=== PATIENT | female | born 1960 | race Caucasian/White ===

== ENCOUNTER 2024-06-01 07:24 | Emergency (ER) | payer OTHER ==
--- NOTE | 2024-06-01 07:45 | ERPHSYRPT ---
- History of Present Illness Time Seen by Provider: 06/01/24 07:45 Source: patient, family Exam Limitations: no limitations Physician History: This is a 63-year-old white female patient who arrives by private vehicle accompanied by her spouse. Patient's complaint is headache, vomiting, diarrhea and bodyaches since yesterday. She denies chest pain. She denies shortness of breath. The headache is described as a throbbing constant ache. Patient has a history of diabetes, hypothyroidism, hypertension, hyperlipidemia, gastroesophageal reflux disease and COPD. Timing/Duration: yesterday Cough Quality/Degree: no cough Possible Cause: no prior episodes Associated Symptoms: headache, muscle aches, No chest pain/soreness, No cough, No shortness of breath Allergies/Adverse Reactions: sumatriptan [From Imitrex] Allergy (Mild, Verified 02/07/13 10:41) sumatriptan succinate [From Imitrex] Allergy (Mild, Verified 02/07/13 10:41) acetaminophen [From Vicodin] Allergy (Unverified 02/07/13 10:36) amitriptyline [Amitriptyline] Allergy (Unverified 02/07/13 10:36) aripiprazole [From Abilify] Allergy (Verified 02/07/13 10:36) duloxetine HCl [From Cymbalta] Allergy (Unverified 02/07/13 10:36) erythromycin base [Erythromycin Base] Allergy (Unverified 02/07/13 10:36) escitalopram oxalate [From Lexapro] Allergy (Unverified 02/07/13 10:36) hydrocodone bitartrate [From Vicodin] Allergy (Unverified 02/07/13 10:36) ketorolac tromethamine [From Toradol] Allergy (Unverified 02/07/13 10:36) quetiapine fumarate [From Seroquel] Adverse Reaction (Unverified 02/07/13 10:36) Home Medications: Albuterol 8 gm Mdi Hfa [Ventolin Hfa MDI] 2 puff Q6HPRN PRN 06/01/24 [History] Atorvastatin Calcium 10 mg PO DAILY 06/01/24 [History] Glipizide 10 mg [Glucotrol 10 MG] 10 mg PO DAILY 06/01/24 [History] Levothyroxine Sodium 112 Mcg [Synthroid 112 Mcg] 112 mcg PO DAILY 06/01/24 [History] Lisinopril 10 mg [Zestril 10 MG] 10 mg PO DAILY 06/01/24 [History] Montelukast Sodium 10 mg [Singulair 10 MG] 1 tab PO DAILY 06/01/24 [History] PANTOPRAZOLE 40 mg Tablet [Protonix 40MG Tablet] 1 mg PO DAILY 06/01/24 [History] Hx Tetanus, Diphtheria Vaccination/Date Given: Yes Hx Influenza Vaccination/Date Given: Yes (2011) Hx Pneumococcal Vaccination/Date Given: No Travel Risk - International Travel Have you traveled outside of the country in past 3 weeks: No - Emerging Infectious Disease Symptoms: Diarrhea, Headaches/Body Aches/, Vomitting - Review of Systems Constitutional: Fever Eyes: No Symptoms Ears, Nose, & Throat: No Symptoms Respiratory: No Symptoms Abdominal/Gastrointestinal: Nausea, Vomiting, Diarrhea, Appetite Changes Genitourinary Symptoms: No Symptoms Musculoskeletal: Arthralgias, Myalgias Neurological: Headache Psychological: No Symptoms Endocrine: No Symptoms Hematologic/Lymphatic: No Symptoms Immunological/Allergic: No Symptoms All Other Systems: Reviewed and Negative - Past Medical History Pertinent Past Medical History: Yes Neurological History: Migraines Cardiac History: Hypertension Endocrine Medical History: Diabetes Type II, Hypothyroidism Musculoskeletal History: No Pertinent History GI Medical History: GERD History: No Pertinent History Psycho-Social History: Anxiety, Depression Female Reproductive Disorders: No Pertinent History - Past Surgical History Past Surgical History: Yes Gastrointestinal: Cholecystectomy Musculoskeletal: Orthopedic Surgery Female Surgical History: Section, Tubal Ligation Significant Family History: heart disease, diabetes, hypertension - Social History Smoking Status: Never smoker Exposure to second hand smoke: Yes Alcohol Use: None Drug Use: none Patient Lives Alone: No - Nursing Vital Signs Nursing Vital Signs: Initial Vital Signs Temperature 99.9 F 06/01/24 07:24 Pulse Rate 66 06/01/24 07:24 Respiratory Rate 18 06/01/24 07:24 Blood Pressure 180/63 06/01/24 07:24 O2 Sat by Pulse Oximetry 99 06/01/24 07:24 Pain Scale Pain Intensity 6 - Physical Exam General Appearance: mild distress, alert, anxiety Eye Exam: PERRL/EOMI, eyes nml inspection Ears, Nose, Throat Exam: normal ENT inspection, moist mucous membranes Neck Exam: normal inspection, non-tender, supple, full range of motion Respiratory Exam: normal breath sounds, lungs clear, airway intact, No chest tenderness, No respiratory distress Cardiovascular Exam: regular rate/rhythm, normal heart sounds, normal peripheral pulses Gastrointestinal/Abdomen Exam: soft, normal bowel sounds, No tenderness, No guarding Pelvic Exam: not done Rectal Exam: not done Back Exam: normal inspection, normal range of motion, No CVA tenderness, No vertebral tenderness Extremity Exam: normal inspection, normal range of motion, pelvis stable Neurologic Exam: alert, oriented x 3, cooperative, rod buster helper II-XII nml as tested, nml cerebellar function, nml station & gait, sensation nml Skin Exam: normal color, warm, dry Lymphatic Exam: No adenopathy SpO2 Interpretation: normal O2 Delivery: Room Air - Course Nursing assessment & vital signs reviewed: Yes Ordered Tests: Active Orders 24 hr Category Date Time Status IV Insertion STAT Care 06/01/24 07:45 Active Pulse Oximetry (ED) STAT Care 06/01/24 07:45 Active HEAD WITHOUT CONTRAST [CT] Stat Exams 06/01/24 10:04 Completed BLOOD CULTURE Stat Lab 06/01/24 07:45 Received CBC W DIFF Stat Lab 06/01/24 08:08 Completed CMP Stat Lab 06/01/24 08:08 Completed CULTURE,URINE Stat Lab 06/01/24 11:46 Received MONO SCREEN Stat Lab 06/01/24 08:08 Completed UA W/RFX UR CULTURE Stat Lab 06/01/24 11:46 Completed Medication Summary Discontinued Medications Generic Name Dose Route Start Last Admin Trade Name Nashq PRN Reason Stop Dose Admin Diphenhydramine HCl 25 mg 06/01/24 09:59 06/01/24 10:05 Diphenhydramine Hcl 50 Mg/Ml Vial IV 06/01/24 10:00 25 mg STAT ONE Administration Diphenhydramine HCl Confirm 06/01/24 10:02 Diphenhydramine Hcl 50 Mg/Ml Vial Administered 06/01/24 10:03 Dose 50 mg .ROUTE .STK-MED ONE Enalaprilat 1.25 mg 06/01/24 10:00 06/01/24 10:06 Enalaprilat 2.5 Mg Injection IV 06/01/24 10:01 1.25 mg STAT ONE Administration Enalaprilat Confirm 06/01/24 10:02 Enalaprilat 2.5 Mg Injection Administered 06/01/24 10:03 Dose 2.5 mg IV .STK-MED ONE Enalaprilat 0.625 mg 06/01/24 11:27 Enalaprilat 2.5 Mg Injection IV 06/01/24 11:28 STAT ONE Hydromorphone HCl 1 mg 06/01/24 07:56 06/01/24 08:05 Hydromorphone 1 Mg/1ml Inj IV 06/01/24 07:57 1 mg STAT ONE Administration Hydromorphone HCl Confirm 06/01/24 08:03 Hydromorphone 1 Mg/1ml Inj Administered 06/01/24 08:04 Dose 1 mg .ROUTE .STK-MED ONE Hydromorphone HCl 0.5 mg 06/01/24 09:46 06/01/24 09:51 Hydromorphone 1 Mg/1ml Inj IV 06/01/24 09:47 0.5 mg STAT ONE Administration Hydromorphone HCl Confirm 06/01/24 09:49 Hydromorphone 1 Mg/1ml Inj Administered 06/01/24 09:50 Dose 1 mg .ROUTE .STK-MED ONE Sodium Chloride 1,000 mls @ 999 mls/hr 06/01/24 07:45 06/01/24 09:01 Sodium Chloride 0.9% 1000 Ml IV 06/01/24 08:45 Infused .Q1H1M STA Infusion Sodium Chloride Confirm 06/01/24 07:50 Sodium Chloride 0.9% 1000 Ml Administered 06/01/24 07:51 Dose 1,000 mls @ ud .ROUTE .STK-MED ONE Lactated Ringer's 1,000 mls @ 999 mls/hr 06/01/24 08:55 06/01/24 10:07 Lactated Ringers IV 06/01/24 09:55 Infused .Q1H1M ONE Infusion Lactated Ringer's Confirm 06/01/24 09:03 Lactated Ringers Administered 06/01/24 09:04 Dose 1,000 mls @ ud IV .STK-MED ONE Ondansetron HCl 4 mg 06/01/24 07:45 06/01/24 07:51 Ondansetron Hcl 4 Mg/2 Ml Vial IV 06/01/24 07:46 4 mg STAT STA Administration Ondansetron HCl Confirm 06/01/24 07:50 Ondansetron Hcl 4 Mg/2 Ml Vial Administered 06/01/24 07:51 Dose 4 mg .ROUTE .STK-MED ONE Oseltamivir Phosphate 75 mg 06/01/24 09:02 06/01/24 09:06 Oseltamivir 75 Mg Cap PO 06/01/24 09:03 75 mg STAT ONE Administration Oseltamivir Phosphate Confirm 06/01/24 09:05 Oseltamivir 75 Mg Cap Administered 06/01/24 09:06 Dose 75 mg PO .STK-MED ONE Prochlorperazine Edisylate 5 mg 06/01/24 09:59 06/01/24 10:03 Prochlorperazine Edisylate 10 Mg/2 Ml Vial IV 06/01/24 10:00 5 mg STAT ONE Administration Prochlorperazine Edisylate Confirm 06/01/24 10:02 Prochlorperazine Edisylate 10 Mg/2 Ml Vial Administered 06/01/24 10:03 Dose 10 mg .ROUTE .STK-MED ONE Lab/Rad Data: Laboratory Result Diagrams 06/01/24 08:08 06/01/24 08:08 Laboratory Results 06/01/24 06/01/24 06/01/24 Range/Units 11:46 08:08 08:08 WBC (3.98-10.04) x10^3/uL RBC (3.93-5.22) x10^6/uL Hgb (11.2-15.7) g/dL Hct (34.1-44.9) % MCV (79.4-94.8) fL MCH (25.6-32.2) pg MCHC (32.2-35.5) g/dL RDW (11.7-14.4) % Plt Count (182-369) x10^3/uL MPV (9.4-12.3) fL Gran % (34.0-71.1) % Immature Gran % (Auto) (0.001-0.429) % Nucleat RBC Rel Count (0.00-0.2) % Eos # (Auto) (0.04-0.36) x10^3/uL Immature Gran # (Auto) (0.001-0.031) x10^3u/L Absolute Lymphs (auto) (1.18-3.74) x10^3/uL Absolute Monos (auto) (0.24-0.86) x10^3/uL Absolute Nucleated RBC (0.00-0.012) x10^3u/L Lymphocytes % (19.3-51.7) % Monocytes % (4.7-12.5) % Eosinophils % (0.7-5.8) % Basophils % (0.1-1.2) % Absolute Granulocytes (1.56-6.13) x10^3/uL Basophils # (0.01-0.08) x10^3/uL Sodium (135-145) mmol/L Potassium (3.5-5.1) mmol/L Chloride (98-107) mmol/L Carbon Dioxide (22-30) mmol/L Anion Gap (5-15) MEQ/L BUN (7-17) mg/dL Creatinine (0.52-1.04) mg/dL Estimated GFR ML/MIN Glucose (74-106) mg/dL Calcium (8.4-10.2) mg/dL Total Bilirubin (0.2-1.3) mg/dL AST (14-36) U/L ALT (0-35) U/L Alkaline Phosphatase (38-126) U/L Serum Total Protein (6.3-8.2) g/dL Albumin (3.5-5.0) g/dL Urine Color Yellow (Yellow) Urine Appearance Clear (Clear) Urine pH 6.5 (4.6-8.0) Ur Specific Badger 1.015 (1.005-1.030) Urine Protein Trace A (Negative) Urine Glucose (UA) >=1000 A (Negative) mg/dL Urine Ketones 15 A (Negative) Urine Blood Small A (Negative) Urine Nitrite Negative (Negative) Urine Bilirubin Negative (Negative) Urine Urobilinogen 0.2 (0.2) mg/dL Ur Leukocyte Esterase Negative (Negative) U Hyaline Cast (Auto) NONE SEEN (0-2) /LPF Urine Microscopic RBC 6-10 A (0-5) /HPF Urine Microscopic WBC 0-2 (0-5) /HPF Ur Epithelial Cells None Seen (None Seen) /HPF Urine Bacteria None Seen (None Seen) /HPF Urine Culture Reflexed YES (NO) Monoscreen NEGATIVE (NEGATIVE) Influenza Type A Ag POSITIVE A (NEGATIVE) Influenza Type B Ag NEGATIVE (NEGATIVE) RSV (PCR) NEGATIVE (NEGATIVE) SARS-CoV-2 (PCR) NEGATIVE (NEGATIVE) Group A Strep Antibody (NEGATIVE) Slides for Path Review 06/01/24 06/01/24 06/01/24 Range/Units 08:08 08:08 08:08 WBC 7.2 (3.98-10.04) x10^3/uL RBC 4.76 (3.93-5.22) x10^6/uL Hgb 13.4 (11.2-15.7) g/dL Hct 38.1 (34.1-44.9) % MCV 80.0 (79.4-94.8) fL MCH 28.2 (25.6-32.2) pg MCHC 35.2 (32.2-35.5) g/dL RDW 12.0 (11.7-14.4) % Plt Count 216 (182-369) x10^3/uL MPV 11.4 (9.4-12.3) fL Gran % 87.8 H (34.0-71.1) % Immature Gran % (Auto) 0.3 (0.001-0.429) % Nucleat RBC Rel Count 0.0 (0.00-0.2) % Eos # (Auto) 0.11 (0.04-0.36) x10^3/uL Immature Gran # (Auto) 0.02 (0.001-0.031) x10^3u/L Absolute Lymphs (auto) 0.29 L (1.18-3.74) x10^3/uL Absolute Monos (auto) 0.44 (0.24-0.86) x10^3/uL Absolute Nucleated RBC 0.00 (0.00-0.012) x10^3u/L Lymphocytes % 4.1 L (19.3-51.7) % Monocytes % 6.2 (4.7-12.5) % Eosinophils % 1.5 (0.7-5.8) % Basophils % 0.1 (0.1-1.2) % Absolute Granulocytes 6.28 H (1.56-6.13) x10^3/uL Basophils # 0.01 (0.01-0.08) x10^3/uL Sodium 131 L (135-145) mmol/L Potassium 3.7 (3.5-5.1) mmol/L Chloride 95 L (98-107) mmol/L Carbon Dioxide 19 L (22-30) mmol/L Anion Gap 21.0 H (5-15) MEQ/L BUN 16 (7-17) mg/dL Creatinine 0.73 (0.52-1.04) mg/dL Estimated GFR 91.8 ML/MIN Glucose 304 H (74-106) mg/dL Calcium 9.7 (8.4-10.2) mg/dL Total Bilirubin 1.00 (0.2-1.3) mg/dL AST 38 H (14-36) U/L ALT 23 (0-35) U/L Alkaline Phosphatase 129 H (38-126) U/L Serum Total Protein 8.6 H (6.3-8.2) g/dL Albumin 5.2 H (3.5-5.0) g/dL Urine Color (Yellow) Urine Appearance (Clear) Urine pH (4.6-8.0) Ur Specific Badger (1.005-1.030) Urine Protein (Negative) Urine Glucose (UA) (Negative) mg/dL Urine Ketones (Negative) Urine Blood (Negative) Urine Nitrite (Negative) Urine Bilirubin (Negative) Urine Urobilinogen (0.2) mg/dL Ur Leukocyte Esterase (Negative) U Hyaline Cast (Auto) (0-2) /LPF Urine Microscopic RBC (0-5) /HPF Urine Microscopic WBC (0-5) /HPF Ur Epithelial Cells (None Seen) /HPF Urine Bacteria (None Seen) /HPF Urine Culture Reflexed (NO) Monoscreen (NEGATIVE) Influenza Type A Ag (NEGATIVE) Influenza Type B Ag (NEGATIVE) RSV (PCR) (NEGATIVE) SARS-CoV-2 (PCR) (NEGATIVE) Group A Strep Antibody NOT DETECTED (NEGATIVE) Slides for Path Review YES - Progress Progress: improved, re-examined Air Movement: good Progress Note: 06/01/24 08:06 My medical decision making and the assignment of moderate complexity to this patient's medical issue today is based on review of the patient's past medical history, review the patient's medication list, reviewed patient drug allergy list, history present illness and physical findings on examination. The workup in this patient includes placement of a intravenous line, infusion of Zofran intravenously, infusion of crystalloid solution, infusion of Dilaudid intr avenously, CBC, CMP, amylase, lipase, urinalysis, viral swabs, monotest, group A strep test. Differential diagnosis includes but is not limited to dehydration, urinary tract infection, viral illness, mononucleosis, electrolyte abnormalities 06/01/24 09:58 Patient is having a headache. She did not take her blood pressure medications today. I interpreted the patient's laboratory data results. Based on the laboratory data results, the patient has influenza A infection. 06/01/24 11:29 The patient has still not provided us a urine specimen. We will discussed with patient about straight catheterization. The CT scan of the head without contrast was interpreted by the radiologist and I reviewed the impression. 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 There is no evidence of urinary tract inf ection. There is mild dehydration present. Blood Culture(s) Obtained: Yes Antibiotics given: No Counseled pt/family regarding: lab results, diagnosis, need for follow-up Medical Desision Making - Independent Historian Additional History obtained from: Spouse - Diagnostic Testing Diagnostic test were ordered, analyzed, and reviewed by me: Yes Radiological Interpretation: Reviewed by me, Teleradiologist Report - Risk of complications The pt has a mod risk of morbidity or mortality based on: Need for prescription drug management - Departure Departure Disposition: Home Clinical Impression: Viral illness, Influenza A H1N1 infection, Hypertension Condition: Stable Critical Care Time: No Referrals: CORNELIO MICHELLE [ACTIVE STAFF] - Follow up/PCP as directed Additional Instructions: Drink plenty of clear liquids before advancing your diet. Take your Tamiflu and other medications as prescribed. Call your primary care provider today, to make arranges for follow-up appointment to be seen in the next 3 to 5 days. Prescriptions: Ondansetron ODT 4 MG [Zofran Odt 4 mg] 4 mg PO Q6H PRN PRN #10 tablet PRN Reason: Vomiting Oseltamivir 75 mg [Tamiflu 75MG Capsule] 75 mg PO BID #10 cap
[2024-06-01] MEDS ORDERED: Zofran 4 MG/2 ML VIAL ONE (07:50)
[2024-06-01] MEDS ORDERED: Sodium Chloride 0.9% 1000 ML 1,000 ML ONE (07:50)
[2024-06-01] MEDS: Sodium Chloride 0.9% 1000 ML 1,000 ML IV STA (07:51)
[2024-06-01] MEDS: Zofran 4 MG/2 ML VIAL IV STA (07:51)
[2024-06-01 07:55] VITALS: TEMP 99.9
[2024-06-01] MEDS ORDERED: Hydromorphone 1 mg/ml Injection ONE ×2 (08:03→09:49)
[2024-06-01] MEDS: Hydromorphone 1 mg/ml Injection IV ONE ×2 (08:05→09:51)
[2024-06-01 08:15] LABS: Absolute Neutrophil Ct (ANC) 6.28 x10^3/uL (1.56-6.13); BASOPHIL % 0.1 % (0.1-1.2); Basophil (Absolute #) 0.01 x10^3/uL (0.01-0.08); Eosinophil % 1.5 % (0.7-5.8); Eosinophil (Absolute #) 0.11 x10^3/uL (0.04-0.36); Hematocrit 38.1 % (34.1-44.9); Hemoglobin 13.4 g/dL (11.2-15.7); IMMATURE GRAN # 0.02 x10^3u/L (0.001-0.031); IMMATURE GRAN % 0.3 % (0.001-0.429); Lymphocyte (Absolute #) 0.29 x10^3/uL (1.18-3.74); Lymphocytes % 4.1 % (19.3-51.7); Mean Corpuscular Hemoglobin 28.2 pg (25.6-32.2); Mean Corpuscular Hgb Concent. 35.2 g/dL (32.2-35.5); Mean Platelet Volume 11.4 fL (9.4-12.3); Monocyte (Absolute #) 0.44 x10^3/uL (0.24-0.86); Monocytes % 6.2 % (4.7-12.5); Neutrophil % 87.8 % (34.0-71.1); Platelet Count 216 x10^3/uL (182-369); Red Blood Count 4.76 x10^6/uL (3.93-5.22); White Blood Count 7.2 x10^3/uL (3.98-10.04)
[2024-06-01 08:30] LABS: ALBUMIN 5.2 g/dL (3.5-5.0); Calcium 9.7 mg/dL (8.4-10.2); Creatinine 1 0.73 mg/dL (0.52-1.04); EST GLOMERULAR FILTRATION RATE 91.8 ML/MIN; Potassium 3.7 mmol/L (3.5-5.1); Total Protein 8.6 g/dL (6.3-8.2)
[2024-06-01 08:47] LABS: Slide Review 1 YES
[2024-06-01 08:57] LABS: INFLUENZA A POSITIVE (NEGATIVE); INFLUENZA B NEGATIVE (NEGATIVE); RESPIRATORY SYNCTIAL VIRUS NEGATIVE (NEGATIVE); SARS-CoV-2 Xpert Express NEGATIVE (NEGATIVE)
[2024-06-01] MEDS ORDERED: Lactated Ringers 1,000 ML IV ONE (09:03)
[2024-06-01] MEDS: Lactated Ringers 1,000 ML IV ONE (09:04)
[2024-06-01] MEDS ORDERED: Tamiflu 75MG Capsule PO ONE (09:05)
[2024-06-01] MEDS: Tamiflu 75MG Capsule PO ONE (09:06)
[2024-06-01] MEDS ORDERED: Compazine 10 MG/2 ML ONE (10:02)
[2024-06-01] MEDS ORDERED: BENADRYL 50 MG/ML ONE (10:02)
[2024-06-01] MEDS ORDERED: ENALAPRILAT 2.5 MG INJECTION IV ONE (10:02)
[2024-06-01] MEDS: Compazine 10 MG/2 ML IV ONE (10:03)
[2024-06-01] MEDS: BENADRYL 50 MG/ML IV ONE (10:05)
[2024-06-01] MEDS: ENALAPRILAT 2.5 MG INJECTION IV ONE ×2 (10:06→13:05)
--- NOTE | 2024-06-01 11:27 | XRAY ---
Indication: Severe headache. Multiple contiguous axial images obtained through the head without contrast. Comparison: February 07, 2013 There is now age-appropriate global atrophy, mild periventricular degenerative micro-ischemia bilaterally, and remote lacunar infarct right thalamus. No acute intracranial hemorrhage, abnormal extra-axial fluid collection, or mass effect. Fourth ventricle is midline without hydrocephalus. Bony calvarium intact. Visualized paranasal sinuses and mastoid air cells are clear. Impression: Nonacute senile brain with remote lacunar infarct right thalamus.
[2024-06-01 11:56] LABS: Appearance Clear (Clear); Bacteria None Seen /HPF (None Seen); Bilirubin Negative (Negative); Blood Small (Negative); Epithelial Cells None Seen /HPF (None Seen); Glucose, Urine >=1000 mg/dL (Negative); Hyaline Casts NONE SEEN /LPF (0-2); Ketones 15 (Negative); Leukocyte Esterase Negative (Negative); Nitrite Negative (Negative); Ph 6.5 (4.6-8.0); Protein,Urine Dip Trace (Negative); Specific Gravity 1.015 (1.005-1.030); Urobilinogen 0.2 mg/dL (0.2); WBC 0-2 /HPF (0-5)
[2024-06-01 12:49] VITALS: BP 160/59; PULSE 60; RESP 18; O2SAT 97
== END 2024-06-01 13:15 | disposition home or self-care (01) ==
LOC: ED 07:24
DX: J10.1 Influenza due to other identified influenza virus with other respiratory manifestations (principal); I10 Essential (primary) hypertension; R11.2 Nausea with vomiting, unspecified; R51.9 Headache, unspecified; R19.7 Diarrhea, unspecified; M79.10 Myalgia, unspecified site; E11.9 Type 2 diabetes mellitus without complications; E78.5 Hyperlipidemia, unspecified; Z79.84 Long term (current) use of oral hypoglycemic drugs; Z79.899 Other long term (current) drug therapy
CPT/HCPCS: 0241U; 36415; 70450; 80053; 81001; 85025; 86308; 87040; 87086; 87651; 94760; 96374; 96375; 96376; 99284; 99285; J1171; J1200; J2405; A9270-GY

== ENCOUNTER 2024-06-14 05:12 | Observation (INO) | payer OTHER ==
[2024-06-14] MEDS ORDERED: DUONEB 0.5-3 MG/3 ml Neb IH ONE (05:22)
[2024-06-14] MEDS: DUONEB 0.5-3 MG/3 ml Neb IH ONE (05:28)
--- NOTE | 2024-06-14 05:37 | ERPHSYRPT ---
- History of Present Illness Source: patient, family Exam Limitations: no limitations Patient Subjective Stated Complaint: pt states that she was diagnosed with the flu 3 weeks ago. pt states she is still having fevers Triage Nursing Assessment: pt ambulated into the er; pt is axo x4; c/o fever; pt states 10/10 pain to chest with coughing; coarse lung sound in posterior rt lower lobe; afebrile on arrival; dry hacking cough present; skin PDW; hypertensive Hx Tetanus, Diphtheria Vaccination/Date Given: Yes Hx Influenza Vaccination/Date Given: No Hx Pneumococcal Vaccination/Date Given: No <USMAN VO - Last Filed: 06/14/24 06:56> <BRIGITTE PARHAM - Last Filed: 06/14/24 07:49> - History of Present Illness Time Seen by Provider: 06/14/24 05:16 Physician History: 63-year-old female with history of hypertension, diabetes mellitus, diagnosed with influenza 2 days ago on Tamiflu presented in the ER with persistent fever of around 101-103 with increasing shortness of breath. Patient reports minimal productive cough and because of repeated coughing having moderate to severe generalized chest soreness/pain. Shortness of breath gets worse with ambulation. Patient is tachypneic on presentation with oxygen saturation of 89 to 91% on room air. (USMAN VO) Allergies/Adverse Reactions: sumatriptan [From Imitrex] Allergy (Mild, Verified 06/14/24 07:32) sumatriptan succinate [From Imitrex] Allergy (Mild, Verified 06/14/24 07:32) acetaminophen [From Vicodin] Allergy (Verified 06/14/24 07:32) amitriptyline [Amitriptyline] Allergy (Verified 06/14/24 07:32) aripiprazole [From Abilify] Allergy (Verified 06/14/24 07:32) duloxetine HCl [From Cymbalta] Allergy (Verified 06/14/24 07:32) erythromycin base [Erythromycin Base] Allergy (Verified 06/14/24 07:32) escitalopram oxalate [From Lexapro] Allergy (Verified 06/14/24 07:32) hydrocodone bitartrate [From Vicodin] Allergy (Verified 06/14/24 07:32) ketorolac tromethamine [From Toradol] Allergy (Verified 06/14/24 07:32) quetiapine fumarate [From Seroquel] Adverse Reaction (Verified 06/14/24 07:32) Home Medications: Albuterol 8 gm Mdi Hfa [Ventolin Hfa MDI] 2 puff Q6HPRN PRN 06/01/24 [History] Atorvastatin Calcium 10 mg PO DAILY 06/01/24 [History] Glipizide 10 mg [Glucotrol 10 MG] 10 mg PO DAILY 06/01/24 [History] Levothyroxine Sodium 112 Mcg [Synthroid 112 Mcg] 112 mcg PO DAILY 06/01/24 [History] Lisinopril 10 mg [Zestril 10 MG] 10 mg PO DAILY 06/01/24 [History] Montelukast Sodium 10 mg [Singulair 10 MG] 1 tab PO DAILY 06/01/24 [History] PANTOPRAZOLE 40 mg Tablet [Protonix 40MG Tablet] 1 mg PO DAILY 06/01/24 [History] Travel Risk - International Travel Have you traveled outside of the country in past 3 weeks: No - Emerging Infectious Disease Are you exhibiting symptoms associated with any current EIDs: Yes Symptoms: Fever, Headaches/Body Aches/ <USMAN VO - Last Filed: 06/14/24 06:56> - Review of Systems Constitutional: Fever, Chills, Fatigue Eyes: No Symptoms Ears, Nose, & Throat: Nose Congestion, Throat Pain Respiratory: Cough, Dyspnea, Dyspnea on Exertion (FRANCISCO), Wheezing Cardiac: Chest Pain Abdominal/Gastrointestinal: No Symptoms Genitourinary Symptoms: No Symptoms Musculoskeletal: Myalgias Skin: No Symptoms Neurological: Headache Psychological: No Symptoms Endocrine: No Symptoms Hematologic/Lymphatic: No Symptoms Immunological/Allergic: No Symptoms <USMAN VO - Last Filed: 06/14/24 06:56> - Past Medical History Pertinent Past Medical History: Yes Neurological History: Migraines Cardiac History: Hypertension Endocrine Medical History: Diabetes Type II, Hypothyroidism Musculoskeletal History: No Pertinent History GI Medical History: GERD History: No Pertinent History Psycho-Social History: Anxiety, Depression Female Reproductive Disorders: No Pertinent History - Past Surgical History Past Surgical History: Yes Gastrointestinal: Cholecystectomy Musculoskeletal: Orthopedic Surgery Female Surgical History: Section, Tubal Ligation Significant Family History: heart disease, diabetes, hypertension - Social History Smoking Status: Never smoker Exposure to second hand smoke: Yes Drug Use: none - Social Determinants of Health Will the patient participate in the screening: Declined to provide <USMAN VO - Last Filed: 06/14/24 06:56> - Physical Exam General Appearance: no apparent distress, alert Eye Exam: PERRL/EOMI Ears, Nose, Throat Exam: hearing grossly normal Neck Exam: normal inspection, non-tender, supple, full range of motion Respiratory Exam: diminished breath sounds, accessory muscle use, rhonchi, wheezing Cardiovascular/Chest Exam: normal heart sounds, tachycardia Abdominal/Gastrointestinal Exam: soft, normal bowel sounds, No tenderness Extremity Exam: non-tender, normal range of motion Neurologic Exam: alert, oriented x 3, cooperative Skin Exam: normal color SpO2 Interpretation: normal SpO2: 94 O2 Delivery: Room Air <USMAN VO - Last Filed: 06/14/24 06:56> - Nursing Vital Signs Nursing Vital Signs: Initial Vital Signs Temperature 98.3 F 06/14/24 05:13 Pulse Rate 107 H 06/14/24 05:13 Respiratory Rate 18 06/14/24 05:13 Blood Pressure 172/102 06/14/24 05:13 O2 Sat by Pulse Oximetry 94 L 06/14/24 05:13 Pain Scale Pain Intensity 6 - Course EKG Interpreted by Me: RATE (62), Sinus Rhythm, NORMAL AXIS, NORMAL INTERVALS, NORMAL QRS <USMAN VO - Last Filed: 06/14/24 06:56> Ordered Tests: Active Orders 24 hr Category Date Time Status Fact Checker STAT Care 06/14/24 05:16 Active EKG-ER Only STAT Care 06/14/24 05:16 Active IV Insertion STAT Care 06/14/24 05:16 Active Oxygen-ED Only Nasal Cannula 2 lpm Care 06/14/24 05:16 Active Telemetry q4h Care 06/14/24 07:28 Active CHEST 1 VIEW (PORTABLE) Stat Exams 06/14/24 05:16 Taken BLOOD CULTURE Stat Lab 06/14/24 06:30 Received CBC W DIFF Stat Lab 06/14/24 06:30 Completed CMP Stat Lab 06/14/24 06:30 Completed Lactic Acid Stat Lab 06/14/24 06:34 Completed MAGNESIUM Stat Lab 06/14/24 06:30 Completed NT PRO BNPII Stat Lab 06/14/24 06:30 Completed TROPONIN Q4H Lab 06/14/24 06:30 Completed TROPONIN Q4H Lab 06/14/24 06:30 Received TROPONIN Q4H Lab 06/14/24 09:30 Ordered Respiratory Therapy Assessment DAILY RT 06/14/24 05:34 Active Transfer Order Routine Transfer 06/14/24 Ordered Medication Summary Generic Name Dose Route Start Last Admin Trade Name Michel PRN Reason Stop Dose Admin Magnesium Sulfate/Dextrose 100 mls @ 100 mls/hr 06/14/24 07:30 06/14/24 07:46 Magnesium 1 Gm / 100 Ml D5w IV 06/14/24 09:29 100 mls/hr Q1H RICKY Administration Potassium Chloride 20 meq in 100 mls @ 50 mls/hr 06/14/24 07:30 Potassium Chloride 20 Meq In Water 100ml IV 06/14/24 11:29 Q2H RICKY Levofloxacin/Dextrose 500 mg in 100 mls @ 100 mls/hr 06/14/24 07:29 Levofloxacin 500mg/100ml D5w IV 06/14/24 08:28 STAT STA Discontinued Medications Generic Name Dose Route Start Last Admin Trade Name Michel PRN Reason Stop Dose Admin Albuterol/Ipratropium 3 ml 06/14/24 05:16 06/14/24 05:28 Ipratropium/Albuterol Sulfate 3 Ml Ampul.Neb IH 06/14/24 05:17 3 ml STAT ONE Administration Albuterol/Ipratropium Confirm 06/14/24 05:22 Ipratropium/Albuterol Sulfate 3 Ml Ampul.Neb Administered 06/14/24 05:23 Dose 3 ml IH .STK-MED ONE Lab/Rad Data: Laboratory Result Diagrams 06/14/24 06:30 06/14/24 06:30 Laboratory Results 06/14/24 06/14/24 06/14/24 Range/Units 06:34 06:30 06:30 WBC 10.9 H (3.98-10.04) x10^3/uL RBC 4.04 (3.93-5.22) x10^6/uL Hgb 11.1 L (11.2-15.7) g/dL Hct 33.4 L (34.1-44.9) % MCV 82.7 (79.4-94.8) fL MCH 27.5 (25.6-32.2) pg MCHC 33.2 (32.2-35.5) g/dL RDW 11.9 (11.7-14.4) % Plt Count 306 (182-369) x10^3/uL MPV 10.4 (9.4-12.3) fL Gran % 84.4 H (34.0-71.1) % Immature Gran % (Auto) 1.1 H (0.001-0.429) % Nucleat RBC Rel Count 0.0 (0.00-0.2) % Eos # (Auto) 0.01 L (0.04-0.36) x10^3/uL Immature Gran # (Auto) 0.12 H (0.001-0.031) x10^3u/L Absolute Lymphs (auto) 0.77 L (1.18-3.74) x10^3/uL Absolute Monos (auto) 0.77 (0.24-0.86) x10^3/uL Absolute Nucleated RBC 0.00 (0.00-0.012) x10^3u/L Lymphocytes % 7.1 L (19.3-51.7) % Monocytes % 7.1 (4.7-12.5) % Eosinophils % 0.1 L (0.7-5.8) % Basophils % 0.2 (0.1-1.2) % Absolute Granulocytes 9.21 H (1.56-6.13) x10^3/uL Basophils # 0.02 (0.01-0.08) x10^3/uL Sodium (135-145) mmol/L Potassium (3.5-5.1) mmol/L Chloride (98-107) mmol/L Carbon Dioxide (22-30) mmol/L Anion Gap (5-15) MEQ/L BUN (7-17) mg/dL Creatinine (0.52-1.04) mg/dL Estimated GFR ML/MIN Glucose (74-106) mg/dL Lactic Acid 1.1 (0.4-2.0) Calcium (8.4-10.2) mg/dL Magnesium (1.6-2.3) mg/dL Total Bilirubin (0.2-1.3) mg/dL AST (14-36) U/L ALT (0-35) U/L Alkaline Phosphatase (38-126) U/L Troponin I (0.000-0.033) ng/mL NT-Pro-B Natriuret Pep 296 (<300) pg/mL Serum Total Protein (6.3-8.2) g/dL Albumin (3.5-5.0) g/dL 06/14/24 06/14/24 Range/Units 06:30 06:30 WBC (3.98-10.04) x10^3/uL RBC (3.93-5.22) x10^6/uL Hgb (11.2-15.7) g/dL Hct (34.1-44.9) % MCV (79.4-94.8) fL MCH (25.6-32.2) pg MCHC (32.2-35.5) g/dL RDW (11.7-14.4) % Plt Count (182-369) x10^3/uL MPV (9.4-12.3) fL Gran % (34.0-71.1) % Immature Gran % (Auto) (0.001-0.429) % Nucleat RBC Rel Count (0.00-0.2) % Eos # (Auto) (0.04-0.36) x10^3/uL Immature Gran # (Auto) (0.001-0.031) x10^3u/L Absolute Lymphs (auto) (1.18-3.74) x10^3/uL Absolute Monos (auto) (0.24-0.86) x10^3/uL Absolute Nucleated RBC (0.00-0.012) x10^3u/L Lymphocytes % (19.3-51.7) % Monocytes % (4.7-12.5) % Eosinophils % (0.7-5.8) % Basophils % (0.1-1.2) % Absolute Granulocytes (1.56-6.13) x10^3/uL Basophils # (0.01-0.08) x10^3/uL Sodium 137 (135-145) mmol/L Potassium 3.2 L (3.5-5.1) mmol/L Chloride 96 L (98-107) mmol/L Carbon Dioxide 27 (22-30) mmol/L Anion Gap 16.7 H (5-15) MEQ/L BUN 11 (7-17) mg/dL Creatinine 0.66 (0.52-1.04) mg/dL Estimated GFR 97.9 ML/MIN Glucose 290 H (74-106) mg/dL Lactic Acid (0.4-2.0) Calcium 8.9 (8.4-10.2) mg/dL Magnesium 1.2 L (1.6-2.3) mg/dL Total Bilirubin 1.00 (0.2-1.3) mg/dL AST 23 (14-36) U/L ALT 14 (0-35) U/L Alkaline Phosphatase 112 (38-126) U/L Troponin I < 0.012 (0.000-0.033) ng/mL NT-Pro-B Natriuret Pep (<300) pg/mL Serum Total Protein 6.8 (6.3-8.2) g/dL Albumin 3.9 (3.5-5.0) g/dL - Progress Progress: improved, re-examined Air Movement: fair Blood Culture(s) Obtained: Yes <USMAN VO - Last Filed: 06/14/24 06:56> <BRIGITTE PARHAM - Last Filed: 06/14/24 07:49> - Progress Progress Note: 06/14/24 06:59 63-year-old with positive influenza A 2 days ago on Tamiflu is evaluated for worsening cough and shortness of breath. Patient is tachypneic and mildly tachycardic on presentation with wheezing, given neb treatment, feeling better on reevaluation. EKG is sinus rhythm with no acute ischemic changes. Chest x-ray no obvious infiltrative process reviewed by me, official final read is pending. Care is transferred to Dr. Parham at end of my shift for reevaluation and final disposition. (USMAN VO) 63-year-old female initially evaluated by . Patient endorsed to Dr. Parham. Workup reveals hypoxia pneumonia tachycardia hypomagnesemia hypokalemia. Patient feels weak. Patient will be admitted for further evaluation and treatment. Plan of care discussed with patient. She agrees to admission at [facility] for further evaluation and treatment. Portions of this note were created with voice recognition technology. There may be grammatical, spelling, punctuation or sound alike errors Complexity of problem addressed is moderate acute complicated no critical care time. Complex of data reviewed and analyzed is extensive. Test ordered test reviewed results analyzed and correlated clinically with history and physical exam. Management discussed with hospitalist Dr. Hassan at 7:27 AM. Patient accepted for admission to observation. Risk of complication and or risk of morbidity/mortality of patient management is high. Patient requires hospitalization for further evaluation and treatment. Vital stable. Time spent admit patient is approximately 15 minutes. Plan of care established for shared decision making. No social determinants of health present to impede follow-up. Portions of this note were created with voice recognition technology. There may be grammatical, spelling, punctuation or sound alike errors 06/14/24 07:47 (BRIGITTE PARHAM) <USMAN VO - Last Filed: 06/14/24 06:56> - Departure Departure Disposition: Observation Critical Care Time: No <BRIGITTE PARHAM - Last Filed: 06/14/24 07:49> - Departure Clinical Impression: Influenza A, Pneumonia, SOB (shortness of breath), Hypomagnesemia, Hypoxia Condition: Stable Referrals: DOCTOR,NO FAMILY [NON-STAFF PHY W/O PRIVILEGES] - Follow up/PCP as directed
[2024-06-14 07:12] LABS: ALBUMIN 3.9 g/dL (3.5-5.0); ANION GAP 16.7 MEQ/L (5-15); Calcium 8.9 mg/dL (8.4-10.2); Creatinine 1 0.66 mg/dL (0.52-1.04); EST GLOMERULAR FILTRATION RATE 97.9 ML/MIN; MAGNESIUM 1.2 mg/dL (1.6-2.3); Potassium 3.2 mmol/L (3.5-5.1); Total Protein 6.8 g/dL (6.3-8.2)
[2024-06-14 07:26] LABS: Absolute Neutrophil Ct (ANC) 9.21 x10^3/uL (1.56-6.13); BASOPHIL % 0.2 % (0.1-1.2); Basophil (Absolute #) 0.02 x10^3/uL (0.01-0.08); Eosinophil % 0.1 % (0.7-5.8); Eosinophil (Absolute #) 0.01 x10^3/uL (0.04-0.36); Hematocrit 33.4 % (34.1-44.9); Hemoglobin 11.1 g/dL (11.2-15.7); IMMATURE GRAN # 0.12 x10^3u/L (0.001-0.031); IMMATURE GRAN % 1.1 % (0.001-0.429); Lymphocyte (Absolute #) 0.77 x10^3/uL (1.18-3.74); Lymphocytes % 7.1 % (19.3-51.7); Mean Cell Volume 82.7 fL (79.4-94.8); Mean Corpuscular Hemoglobin 27.5 pg (25.6-32.2); Mean Corpuscular Hgb Concent. 33.2 g/dL (32.2-35.5); Mean Platelet Volume 10.4 fL (9.4-12.3); Monocyte (Absolute #) 0.77 x10^3/uL (0.24-0.86); Monocytes % 7.1 % (4.7-12.5); Neutrophil % 84.4 % (34.0-71.1); Platelet Count 306 x10^3/uL (182-369); Red Blood Count 4.04 x10^6/uL (3.93-5.22); Red Cell Distribution Width 11.9 % (11.7-14.4); White Blood Count 10.9 x10^3/uL (3.98-10.04)
[2024-06-14] MEDS: Magnesium 1 Gm / 100 Ml D5W*** 100 ML IV SCH (07:46)
[2024-06-14 08:29] LABS: INFLUENZA A NEGATIVE (NEGATIVE); INFLUENZA B NEGATIVE (NEGATIVE); RESPIRATORY SYNCTIAL VIRUS NEGATIVE (NEGATIVE); SARS-CoV-2 Xpert Express NEGATIVE (NEGATIVE)
--- NOTE | 2024-06-14 09:05 | XRAY ---
Indication: Short of breath. Comparison: February 07, 2013 Portable chest hyperinflated and clear. Heart not enlarged. New left Port-A-Cath with tip in right subclavian vein. Bony thorax intact with osteopenia and mild degenerative changes. No acute findings.
--- NOTE | 2024-06-14 10:37 | PCM.HP ---
History of Present Illness - Chief Complaint Chief Complaint: Influenza, pneumonia, shortness of breath, hypomagnesemia Date: 06/14/24 History of Present Illness: is a 63 year old female with a pmhx of HTN, DMII, GERD, colon cancer (s/p colon resection), and hypothyroid who presented to ED 06/14/24 with complaints of dyspnea, cough, and fever. Patient reports that she tested positive for FluA 06/01/24 and treated with Tamiflu. Symptoms have persisted since diagnosis and her dyspnea has progressively gotten worse. She also reports daily fevers with TMax of 103 just this morning. She also endorses diarrhea since diagnosis and thrush. Denies cp, abdominal pain, PEÑA, dizziness, or N/V. Upon presentation patient tachycardic, hypoxic, and hypertensive. Spo2 reported at 89-91%. She was placed on 2L oxygen with noted improvement. EKG NS with no acute ischemia. CXR with no acute findings. Lab findings remarkable for leukocytosis, hypokalemia, hypomagnesemia, and hyperglycemia. Respiratory viral panel negative. Patient received Levaquin, magnesium, and potassium in ED. Admit for acute respiratory failure with hypoxia secondary to FluA. Plan continuation of steroids, levaquin, electrolyte replenishment, and supportive care. - Review of Systems Constitutional: Fever, Chills, Weakness Eyes: No Symptoms Ears, Nose, & Throat: Nose Congestion, Throat Pain, Other (thrush) Respiratory: Cough, Short Of Breath Cardiac: No Symptoms Abdominal/Gastrointestinal: No Symptoms Genitourinary Symptoms: No Symptoms Musculoskeletal: No Symptoms Skin: No Symptoms Neurological: No Symptoms Psychological: No Symptoms Endocrine: No Symptoms Hematologic/Lymphatic: No Symptoms Immunological/Allergic: No Symptoms Medications & Allergies Home Medications: Home Medication List Albuterol 8 gm Mdi Hfa [Ventolin Hfa MDI] 2 puff IH Q6HPRN PRN 06/01/24 [History Confirmed 06/14/24] Glipizide 10 mg [Glucotrol 10 MG] 10 mg PO BID 06/01/24 [History Confirmed 06/14/24] Levothyroxine Sodium 112 Mcg [Synthroid 112 Mcg] 112 mcg PO DAILY 06/01/24 [History Confirmed 06/14/24] Lisinopril 10 mg [Zestril 10 MG] 10 mg PO DAILY 06/01/24 [History Confirmed 06/14/24] Montelukast Sodium 10 mg [Singulair 10 MG] 1 tab PO DAILY 06/01/24 [History Confirmed 06/14/24] Ondansetron ODT 4 MG [Zofran Odt 4 mg] 4 mg PO Q6H PRN PRN #10 tablet 06/01/24 [Rx Confirmed 06/14/24] PANTOPRAZOLE 40 mg Tablet [Protonix 40MG Tablet] 40 mg PO BID 06/01/24 [History Confirmed 06/14/24] Albuterol 8 gm Mdi Hfa [Ventolin Hfa MDI] 90 mcg IH QID PRN 06/14/24 [History Confirmed 06/14/24] Allergies/Adverse Reactions: Allergies Allergy/AdvReac Type Severity Reaction Status Date / Time sumatriptan [From Imitrex] Allergy Mild Verified 06/14/24 07:32 sumatriptan succinate Allergy Mild Verified 06/14/24 07:32 [From Imitrex] acetaminophen [From Vicodin] Allergy Verified 06/14/24 07:32 amitriptyline [Amitriptyline] Allergy Verified 06/14/24 07:32 aripiprazole [From Abilify] Allergy Verified 06/14/24 07:32 duloxetine HCl Allergy Verified 06/14/24 07:32 [From Cymbalta] erythromycin base Allergy Verified 06/14/24 07:32 [Erythromycin Base] escitalopram oxalate Allergy Verified 06/14/24 07:32 [From Lexapro] hydrocodone bitartrate Allergy Verified 06/14/24 07:32 [From Vicodin] ketorolac tromethamine Allergy Verified 06/14/24 07:32 [From Toradol] quetiapine fumarate AdvReac Verified 06/14/24 07:32 [From Seroquel] - Past Medical History Past Medical History: Yes Neurological History: Migraines ENT History: No Pertinent History Cardiac History: Hypertension Respiratory History: Asthma Endocrine Medical History: Diabetes Type II, Hypothyroidism Musculoskelatal History: No Pertinent History GI Medical History: GERD History: Other Pyscho-Social History: Anxiety, Depression Reproductive Disorders: No Pertinent History Comment: colon cancer - Past Surgical History Past Surgical History: Yes Neuro Surgical History: No Pertinent History Cardiac History: No Pertinent History Respiratory Surgery: No Pertinent History GI Surgical History: Cholecystectomy Genitourinary Surgical Hx: No Pertinent History Musculskeletal Surgical Hx: Orthopedic Surgery Female Surgical History: Section, Tubal Ligation Other Surgical History: colon resection 01/2016 Significant Family History: hypertension - Social History Smoking Status: Never smoker Exposure to second hand smoke: Yes Alcohol: None Drug Use: none - Social Determinants of Health Will the patient participate in the screening: Declined to provide - Physical Exam Vital Signs: Vital Signs - 24 hr Temp Pulse Resp BP BP Pulse Ox 06/14/24 10:12 99.0 F 123 H 22 164/106 93 L 06/14/24 09:50 123 H 22 92 L 06/14/24 09:28 116 H 20 94 L 06/14/24 08:01 121/103 06/14/24 07:30 97 H 18 164/92 93 L 06/14/24 07:09 112 H 147/65 96 06/14/24 07:03 94 L 06/14/24 06:31 111 H 116/86 95 06/14/24 06:00 92 H 19 132/87 95 06/14/24 05:52 93 H 24 96 06/14/24 05:30 86 24 151/77 94 L 06/14/24 05:13 98.3 F 107 H 18 172/102 94 L General Appearance: no apparent distress Neurologic Exam: alert, oriented x 3, cooperative Eye Exam: PERRL/EOMI Ears, Nose, Throat Exam: normal ENT inspection Neck Exam: normal inspection Respiratory Exam: wheezing Cardiovascular Exam: regular rate/rhythm, normal heart sounds Gastrointestinal/Abdomen Exam: soft, normal bowel sounds Pelvic Exam: not done Rectal Exam: deferred Extremity Exam: normal inspection Skin Exam: normal color Results - Labs Lab/Micro Results: Lab Results-Last 24 Hours 06/14/24 06/14/24 06/14/24 Range/Units 06:30 06:30 06:30 WBC (3.98-10.04) x10^3/uL RBC (3.93-5.22) x10^6/uL Hgb (11.2-15.7) g/dL Hct (34.1-44.9) % MCV (79.4-94.8) fL MCH (25.6-32.2) pg MCHC (32.2-35.5) g/dL RDW (11.7-14.4) % Plt Count (182-369) x10^3/uL MPV (9.4-12.3) fL Gran % (34.0-71.1) % Immature Gran % (Auto) (0.001-0.429) % Nucleat RBC Rel Count (0.00-0.2) % Eos # (Auto) (0.04-0.36) x10^3/uL Immature Gran # (Auto) (0.001-0.031) x10^3u/L Absolute Lymphs (auto) (1.18-3.74) x10^3/uL Absolute Monos (auto) (0.24-0.86) x10^3/uL Absolute Nucleated RBC (0.00-0.012) x10^3u/L Lymphocytes % (19.3-51.7) % Monocytes % (4.7-12.5) % Eosinophils % (0.7-5.8) % Basophils % (0.1-1.2) % Absolute Granulocytes (1.56-6.13) x10^3/uL Basophils # (0.01-0.08) x10^3/uL Sodium 137 (135-145) mmol/L Potassium 3.2 L (3.5-5.1) mmol/L Chloride 96 L (98-107) mmol/L Carbon Dioxide 27 (22-30) mmol/L Anion Gap 16.7 H (5-15) MEQ/L BUN 11 (7-17) mg/dL Creatinine 0.66 (0.52-1.04) mg/dL Estimated GFR 97.9 ML/MIN Glucose 290 H (74-106) mg/dL Lactic Acid (0.4-2.0) Calcium 8.9 (8.4-10.2) mg/dL Magnesium 1.2 L (1.6-2.3) mg/dL Total Bilirubin 1.00 (0.2-1.3) mg/dL AST 23 (14-36) U/L ALT 14 (0-35) U/L Alkaline Phosphatase 112 (38-126) U/L Troponin I < 0.012 (0.000-0.033) ng/mL NT-Pro-B Natriuret Pep 296 (<300) pg/mL Serum Total Protein 6.8 (6.3-8.2) g/dL Albumin 3.9 (3.5-5.0) g/dL Influenza Type A Ag (NEGATIVE) Influenza Type B Ag (NEGATIVE) RSV (PCR) (NEGATIVE) SARS-CoV-2 (PCR) (NEGATIVE) 06/14/24 06/14/24 06/14/24 Range/Units 06:30 06:34 07:51 WBC 10.9 H (3.98-10.04) x10^3/uL RBC 4.04 (3.93-5.22) x10^6/uL Hgb 11.1 L (11.2-15.7) g/dL Hct 33.4 L (34.1-44.9) % MCV 82.7 (79.4-94.8) fL MCH 27.5 (25.6-32.2) pg MCHC 33.2 (32.2-35.5) g/dL RDW 11.9 (11.7-14.4) % Plt Count 306 (182-369) x10^3/uL MPV 10.4 (9.4-12.3) fL Gran % 84.4 H (34.0-71.1) % Immature Gran % (Auto) 1.1 H (0.001-0.429) % Nucleat RBC Rel Count 0.0 (0.00-0.2) % Eos # (Auto) 0.01 L (0.04-0.36) x10^3/uL Immature Gran # (Auto) 0.12 H (0.001-0.031) x10^3u/L Absolute Lymphs (auto) 0.77 L (1.18-3.74) x10^3/uL Absolute Monos (auto) 0.77 (0.24-0.86) x10^3/uL Absolute Nucleated RBC 0.00 (0.00-0.012) x10^3u/L Lymphocytes % 7.1 L (19.3-51.7) % Monocytes % 7.1 (4.7-12.5) % Eosinophils % 0.1 L (0.7-5.8) % Basophils % 0.2 (0.1-1.2) % Absolute Granulocytes 9.21 H (1.56-6.13) x10^3/uL Basophils # 0.02 (0.01-0.08) x10^3/uL Sodium (135-145) mmol/L Potassium (3.5-5.1) mmol/L Chloride (98-107) mmol/L Carbon Dioxide (22-30) mmol/L Anion Gap (5-15) MEQ/L BUN (7-17) mg/dL Creatinine (0.52-1.04) mg/dL Estimated GFR ML/MIN Glucose (74-106) mg/dL Lactic Acid 1.1 (0.4-2.0) Calcium (8.4-10.2) mg/dL Magnesium (1.6-2.3) mg/dL Total Bilirubin (0.2-1.3) mg/dL AST (14-36) U/L ALT (0-35) U/L Alkaline Phosphatase (38-126) U/L Troponin I (0.000-0.033) ng/mL NT-Pro-B Natriuret Pep (<300) pg/mL Serum Total Protein (6.3-8.2) g/dL Albumin (3.5-5.0) g/dL Influenza Type A Ag NEGATIVE (NEGATIVE) Influenza Type B Ag NEGATIVE (NEGATIVE) RSV (PCR) NEGATIVE (NEGATIVE) SARS-CoV-2 (PCR) NEGATIVE (NEGATIVE) - Radiology Impressions Radiology Exams & Impressions: Radiology Procedures Category Date Time Status CHEST 1 VIEW (PORTABLE) Stat Exams 06/14/24 05:16 Completed - Other Procedures and Tests Respiratory Therapy 06/14/24 05:34 Respiratory Therapy Assessment DAILY 06/14/24 09:49 Oxygen NASAL CANNULA 2 lpm Assessment/Plan (1) Acute respiratory failure with hypoxia Current Visit: Yes Status: Acute Assessment & Plan: -Secondary to fluA/acute bronchitis -CXR with no acute findings -Completed Tamiflu course -Resp viral panel negative currently for fluA/covid/RSV -Levaquin given in ED - continue with Levaquin -prednisone 20mg bid -+IS -RT eval and follow -Nebs/INH -Supplemental oxygen with goal spo2 > 91% - RA baseline - currently on 2L -initiate droplet precautions -Supportive care with anti-pyretics/anti-emetics Code(s): J96.01 - ACUTE RESPIRATORY FAILURE WITH HYPOXIA (2) Influenza A Current Visit: Yes Status: Acute Assessment & Plan: -see ARF Code(s): J10.1 - FLU DUE TO OTH IDENT INFLUENZA VIRUS W OTH RESP MANIFEST (3) Acute bronchitis Current Visit: Yes Status: Acute Assessment & Plan: -see ARF for plan Code(s): J20.9 - ACUTE BRONCHITIS, UNSPECIFIED (4) Hypokalemia Current Visit: Yes Status: Acute Assessment & Plan: -tele -Potassium reviewed at 3.2 -Potassium protocol with labs -monitor renal/lytes daily Code(s): E87.6 - HYPOKALEMIA (5) Hypomagnesemia Current Visit: Yes Status: Acute Assessment & Plan: -Mg level at 1.2 - Magnesium 2g ordered in ED - will recheck in the a.m Code(s): E83.42 - HYPOMAGNESEMIA (6) Hypertension Current Visit: No Status: Acute Assessment & Plan: -Continue home meds Code(s): I10 - ESSENTIAL (PRIMARY) HYPERTENSION (7) Type 2 diabetes mellitus Current Visit: Yes Status: Acute Assessment & Plan: -SSI - mod dose - adjust as needed with steroid use -ADA diet -Accuchecks -A1c (8) Hypothyroid Current Visit: Yes Status: Acute Assessment & Plan: -continue home levothyroxine VTE: Lovenox PPI: protonix Dispo: 1-2 days Code: full Code(s): E03.9 - HYPOTHYROIDISM, UNSPECIFIED
[2024-06-14] MEDS ORDERED: Zofran 4 MG/2 ML VIAL IV PRN (10:48)
[2024-06-14] MEDS: TYLENOL 325 MG PO PRN (11:37)
[2024-06-14] MEDS: DELTASONE 20 MG PO SCH (11:37)
[2024-06-14] MEDS: ENOXAPARIN SODIUM SQ SCH (11:37)
[2024-06-14] MEDS: Levofloxacin 250MG Tablet PO SCH (11:37)
[2024-06-14] MEDS: Levofloxacin 500 MG Tablet PO SCH (11:38)
[2024-06-14] MEDS: DUONEB 0.5-3 MG/3 ml Neb IH SCH (11:48)
[2024-06-14] MEDS: HUMALOG SQ PRN (12:00)
[2024-06-14] MEDS: Klor Con PO ONE (12:00)
[2024-06-14] MEDS: Protonix 40MG Tablet PO SCH (12:01)
[2024-06-14] MEDS ORDERED: ZOFRAN ODT 4 MG PO PRN (13:34)
[2024-06-14] MEDS: Singulair 10 MG PO SCH (14:18)
[2024-06-14] MEDS: SYNTHROID 112 MCG PO SCH (14:18)
[2024-06-14] MEDS: Zestril 10 MG PO SCH (14:18)
[2024-06-14] MEDS: Magnesium 1 Gm / 100 Ml D5W*** 100 ML IV ONE (14:18)
[2024-06-14] MEDS: POTASSIUM CHLORIDE 20 mEq IN WATER 100ML 20 MEQ/100 ML BAG IV SCH (15:26)
[2024-06-14] MEDS: Levofloxacin 500MG/100ML D5W 500 MG/100 ML BAG IV STA (15:50)
[2024-06-14] MEDS: PROTONIX 40 MG IV IV SCH (15:50)
[2024-06-14] MEDS: Klor Con PO SCH (16:26)
[2024-06-14] MEDS: MARY'S MOUTHWASH PO SCH (16:27)
--- NOTE | 2024-06-15 05:15 | PCM.NOTE ---
Date and Time: 06/15/24 0514 Subjective Assessment: is a 63 year old female with a pmhx of HTN, DMII, GERD, colon cancer (s/p colon resection), and hypothyroid who presented to ED 06/14/24 with complaints of dyspnea, cough, and fever. Patient reports that she tested positive for FluA 06/01/24 and treated with Tamiflu. Symptoms have persisted since diagnosis and her dyspnea has progressively gotten worse. She also reports daily fevers with TMax of 103 just this morning. She also endorses diarrhea since diagnosis and thrush. Denies cp, abdominal pain, PEÑA, dizziness, or N/V. Upon presentation patient tachycardic, hypoxic, and hypertensive. Spo2 reported at 89-91%. She was placed on 2L oxygen with noted improvement. EKG NS with no acute ischemia. CXR with no acute findings. Lab findings remarkable for leukocytosis, hypokalemia, hypomagnesemia, and hyperglycemia. Respiratory viral panel negative. Patient received Levaquin, magnesium, and potassium in ED. Admit for acute respiratory failure with hypoxia secondary to FluA. Plan continuation of steroids, levaquin, electrolyte replenishment, and supportive care. 06/15/24: No overnight events noted. Dyspnea and cough improved. No N/V/D. Patient now on 2L oxygen. Will attempt to titrate as appropriate. Blood glucose levels elevated this morning in the setting of steroids. Will increase SSI to HD. Pending treatment response most likely will discharge tomorrow. - Review of Systems Constitutional: No Symptoms Eyes: No Symptoms Ears, Nose, & Throat: No Symptoms Respiratory: Cough, Short Of Breath, Wheezing Cardiac: No Symptoms Abdominal/Gastrointestinal: No Symptoms Genitourinary Symptoms: No Symptoms Musculoskeletal: No Symptoms Skin: No Symptoms Neurological: No Symptoms Psychological: No Symptoms Endocrine: No Symptoms Hematologic/Lymphatic: No Symptoms Immunological/Allergic: No Symptoms Objective Exam General Appearance: no apparent distress Neurologic Exam: alert, oriented x 3, cooperative Skin Exam: normal color Eye Exam: PERRL Ears, Nose, Throat Exam: normal ENT inspection Neck Exam: normal inspection Respiratory Exam: crackles/rales, wheezing Cardiovascular Exam: regular rate/rhythm, normal heart sounds Gastrointestinal/Abdomen Exam: soft, normal bowel sounds Extremity Exam: normal inspection Back Exam: normal inspection Pelvic Exam: deferred Rectal Exam: deferred Objective Data Vital Signs: Vital Signs - 24 hr Temp Pulse Resp BP BP Pulse Ox 06/15/24 04:00 98.2 F 89 20 177/91 95 06/15/24 02:30 87 20 96 06/15/24 00:00 96.8 F 83 24 138/76 95 06/14/24 20:00 97.5 F 81 20 157/75 96 06/14/24 16:58 84 20 92 L 06/14/24 16:00 98.6 F 84 20 182/107 92 L 06/14/24 12:00 98.6 F 106 H 24 182/107 95 06/14/24 11:50 106 H 20 95 06/14/24 10:12 99.0 F 123 H 22 164/106 93 L 06/14/24 09:50 123 H 22 92 L 06/14/24 09:28 116 H 20 94 L 06/14/24 08:01 121/103 06/14/24 07:30 97 H 18 164/92 93 L 06/14/24 07:09 112 H 147/65 96 06/14/24 07:03 94 L 06/14/24 06:31 111 H 116/86 95 06/14/24 06:00 92 H 19 132/87 95 06/14/24 05:52 93 H 24 96 06/14/24 05:30 86 24 151/77 94 L Pain Assessment - Last Documented Pain Intensity 0 Pain Scale Used 0-10 Pain Scale Intake and Output: Intake & Output 06/12/24 06/13/24 06/14/24 06/15/24 11:59 11:59 11:59 11:59 Intake Total 960 Output Total 1999 Balance -1040 Weight 59.1 kg Lab Results: Lab Results-Last 24 Hours 06/14/24 06/14/24 06/14/24 Range/Units 06:30 06:30 06:30 WBC (3.98-10.04) x10^3/uL RBC (3.93-5.22) x10^6/uL Hgb (11.2-15.7) g/dL Hct (34.1-44.9) % MCV (79.4-94.8) fL MCH (25.6-32.2) pg MCHC (32.2-35.5) g/dL RDW (11.7-14.4) % Plt Count (182-369) x10^3/uL MPV (9.4-12.3) fL Gran % (34.0-71.1) % Immature Gran % (Auto) (0.001-0.429) % Nucleat RBC Rel Count (0.00-0.2) % Eos # (Auto) (0.04-0.36) x10^3/uL Immature Gran # (Auto) (0.001-0.031) x10^3u/L Absolute Lymphs (auto) (1.18-3.74) x10^3/uL Absolute Monos (auto) (0.24-0.86) x10^3/uL Absolute Nucleated RBC (0.00-0.012) x10^3u/L Lymphocytes % (19.3-51.7) % Monocytes % (4.7-12.5) % Eosinophils % (0.7-5.8) % Basophils % (0.1-1.2) % Absolute Granulocytes (1.56-6.13) x10^3/uL Basophils # (0.01-0.08) x10^3/uL Sodium 137 (135-145) mmol/L Potassium 3.2 L (3.5-5.1) mmol/L Chloride 96 L (98-107) mmol/L Carbon Dioxide 27 (22-30) mmol/L Anion Gap 16.7 H (5-15) MEQ/L BUN 11 (7-17) mg/dL Creatinine 0.66 (0.52-1.04) mg/dL Estimated GFR 97.9 ML/MIN Glucose 290 H (74-106) mg/dL POC Glucometer (74 to 106) mg/dL Lactic Acid (0.4-2.0) Calcium 8.9 (8.4-10.2) mg/dL Magnesium 1.2 L (1.6-2.3) mg/dL Total Bilirubin 1.00 (0.2-1.3) mg/dL AST 23 (14-36) U/L ALT 14 (0-35) U/L Alkaline Phosphatase 112 (38-126) U/L Troponin I < 0.012 (0.000-0.033) ng/mL NT-Pro-B Natriuret Pep 296 (<300) pg/mL Serum Total Protein 6.8 (6.3-8.2) g/dL Albumin 3.9 (3.5-5.0) g/dL Influenza Type A Ag (NEGATIVE) Influenza Type B Ag (NEGATIVE) RSV (PCR) (NEGATIVE) SARS-CoV-2 (PCR) (NEGATIVE) 06/14/24 06/14/24 06/14/24 Range/Units 06:30 06:34 07:51 WBC 10.9 H (3.98-10.04) x10^3/uL RBC 4.04 (3.93-5.22) x10^6/uL Hgb 11.1 L (11.2-15.7) g/dL Hct 33.4 L (34.1-44.9) % MCV 82.7 (79.4-94.8) fL MCH 27.5 (25.6-32.2) pg MCHC 33.2 (32.2-35.5) g/dL RDW 11.9 (11.7-14.4) % Plt Count 306 (182-369) x10^3/uL MPV 10.4 (9.4-12.3) fL Gran % 84.4 H (34.0-71.1) % Immature Gran % (Auto) 1.1 H (0.001-0.429) % Nucleat RBC Rel Count 0.0 (0.00-0.2) % Eos # (Auto) 0.01 L (0.04-0.36) x10^3/uL Immature Gran # (Auto) 0.12 H (0.001-0.031) x10^3u/L Absolute Lymphs (auto) 0.77 L (1.18-3.74) x10^3/uL Absolute Monos (auto) 0.77 (0.24-0.86) x10^3/uL Absolute Nucleated RBC 0.00 (0.00-0.012) x10^3u/L Lymphocytes % 7.1 L (19.3-51.7) % Monocytes % 7.1 (4.7-12.5) % Eosinophils % 0.1 L (0.7-5.8) % Basophils % 0.2 (0.1-1.2) % Absolute Granulocytes 9.21 H (1.56-6.13) x10^3/uL Basophils # 0.02 (0.01-0.08) x10^3/uL Sodium (135-145) mmol/L Potassium (3.5-5.1) mmol/L Chloride (98-107) mmol/L Carbon Dioxide (22-30) mmol/L Anion Gap (5-15) MEQ/L BUN (7-17) mg/dL Creatinine (0.52-1.04) mg/dL Estimated GFR ML/MIN Glucose (74-106) mg/dL POC Glucometer (74 to 106) mg/dL Lactic Acid 1.1 (0.4-2.0) Calcium (8.4-10.2) mg/dL Magnesium (1.6-2.3) mg/dL Total Bilirubin (0.2-1.3) mg/dL AST (14-36) U/L ALT (0-35) U/L Alkaline Phosphatase (38-126) U/L Troponin I (0.000-0.033) ng/mL NT-Pro-B Natriuret Pep (<300) pg/mL Serum Total Protein (6.3-8.2) g/dL Albumin (3.5-5.0) g/dL Influenza Type A Ag NEGATIVE (NEGATIVE) Influenza Type B Ag NEGATIVE (NEGATIVE) RSV (PCR) NEGATIVE (NEGATIVE) SARS-CoV-2 (PCR) NEGATIVE (NEGATIVE) 06/14/24 06/14/24 06/14/24 Range/Units 09:55 11:37 13:48 WBC (3.98-10.04) x10^3/uL RBC (3.93-5.22) x10^6/uL Hgb (11.2-15.7) g/dL Hct (34.1-44.9) % MCV (79.4-94.8) fL MCH (25.6-32.2) pg MCHC (32.2-35.5) g/dL RDW (11.7-14.4) % Plt Count (182-369) x10^3/uL MPV (9.4-12.3) fL Gran % (34.0-71.1) % Immature Gran % (Auto) (0.001-0.429) % Nucleat RBC Rel Count (0.00-0.2) % Eos # (Auto) (0.04-0.36) x10^3/uL Immature Gran # (Auto) (0.001-0.031) x10^3u/L Absolute Lymphs (auto) (1.18-3.74) x10^3/uL Absolute Monos (auto) (0.24-0.86) x10^3/uL Absolute Nucleated RBC (0.00-0.012) x10^3u/L Lymphocytes % (19.3-51.7) % Monocytes % (4.7-12.5) % Eosinophils % (0.7-5.8) % Basophils % (0.1-1.2) % Absolute Granulocytes (1.56-6.13) x10^3/uL Basophils # (0.01-0.08) x10^3/uL Sodium (135-145) mmol/L Potassium 3.2 L (3.5-5.1) mmol/L Chloride (98-107) mmol/L Carbon Dioxide (22-30) mmol/L Anion Gap (5-15) MEQ/L BUN (7-17) mg/dL Creatinine (0.52-1.04) mg/dL Estimated GFR ML/MIN Glucose (74-106) mg/dL POC Glucometer 292 H (74 to 106) mg/dL Lactic Acid (0.4-2.0) Calcium (8.4-10.2) mg/dL Magnesium (1.6-2.3) mg/dL Total Bilirubin (0.2-1.3) mg/dL AST (14-36) U/L ALT (0-35) U/L Alkaline Phosphatase (38-126) U/L Troponin I < 0.012 (0.000-0.033) ng/mL NT-Pro-B Natriuret Pep (<300) pg/mL Serum Total Protein (6.3-8.2) g/dL Albumin (3.5-5.0) g/dL Influenza Type A Ag (NEGATIVE) Influenza Type B Ag (NEGATIVE) RSV (PCR) (NEGATIVE) SARS-CoV-2 (PCR) (NEGATIVE) 06/14/24 06/14/24 06/14/24 Range/Units 16:16 19:54 20:51 WBC (3.98-10.04) x10^3/uL RBC (3.93-5.22) x10^6/uL Hgb (11.2-15.7) g/dL Hct (34.1-44.9) % MCV (79.4-94.8) fL MCH (25.6-32.2) pg MCHC (32.2-35.5) g/dL RDW (11.7-14.4) % Plt Count (182-369) x10^3/uL MPV (9.4-12.3) fL Gran % (34.0-71.1) % Immature Gran % (Auto) (0.001-0.429) % Nucleat RBC Rel Count (0.00-0.2) % Eos # (Auto) (0.04-0.36) x10^3/uL Immature Gran # (Auto) (0.001-0.031) x10^3u/L Absolute Lymphs (auto) (1.18-3.74) x10^3/uL Absolute Monos (auto) (0.24-0.86) x10^3/uL Absolute Nucleated RBC (0.00-0.012) x10^3u/L Lymphocytes % (19.3-51.7) % Monocytes % (4.7-12.5) % Eosinophils % (0.7-5.8) % Basophils % (0.1-1.2) % Absolute Granulocytes (1.56-6.13) x10^3/uL Basophils # (0.01-0.08) x10^3/uL Sodium (135-145) mmol/L Potassium 4.2 D (3.5-5.1) mmol/L Chloride (98-107) mmol/L Carbon Dioxide (22-30) mmol/L Anion Gap (5-15) MEQ/L BUN (7-17) mg/dL Creatinine (0.52-1.04) mg/dL Estimated GFR ML/MIN Glucose (74-106) mg/dL POC Glucometer 247 H 357 H (74 to 106) mg/dL Lactic Acid (0.4-2.0) Calcium (8.4-10.2) mg/dL Magnesium (1.6-2.3) mg/dL Total Bilirubin (0.2-1.3) mg/dL AST (14-36) U/L ALT (0-35) U/L Alkaline Phosphatase (38-126) U/L Troponin I (0.000-0.033) ng/mL NT-Pro-B Natriuret Pep (<300) pg/mL Serum Total Protein (6.3-8.2) g/dL Albumin (3.5-5.0) g/dL Influenza Type A Ag (NEGATIVE) Influenza Type B Ag (NEGATIVE) RSV (PCR) (NEGATIVE) SARS-CoV-2 (PCR) (NEGATIVE) 06/14/24 Range/Units 23:53 WBC (3.98-10.04) x10^3/uL RBC (3.93-5.22) x10^6/uL Hgb (11.2-15.7) g/dL Hct (34.1-44.9) % MCV (79.4-94.8) fL MCH (25.6-32.2) pg MCHC (32.2-35.5) g/dL RDW (11.7-14.4) % Plt Count (182-369) x10^3/uL MPV (9.4-12.3) fL Gran % (34.0-71.1) % Immature Gran % (Auto) (0.001-0.429) % Nucleat RBC Rel Count (0.00-0.2) % Eos # (Auto) (0.04-0.36) x10^3/uL Immature Gran # (Auto) (0.001-0.031) x10^3u/L Absolute Lymphs (auto) (1.18-3.74) x10^3/uL Absolute Monos (auto) (0.24-0.86) x10^3/uL Absolute Nucleated RBC (0.00-0.012) x10^3u/L Lymphocytes % (19.3-51.7) % Monocytes % (4.7-12.5) % Eosinophils % (0.7-5.8) % Basophils % (0.1-1.2) % Absolute Granulocytes (1.56-6.13) x10^3/uL Basophils # (0.01-0.08) x10^3/uL Sodium (135-145) mmol/L Potassium 4.5 (3.5-5.1) mmol/L Chloride (98-107) mmol/L Carbon Dioxide (22-30) mmol/L Anion Gap (5-15) MEQ/L BUN (7-17) mg/dL Creatinine (0.52-1.04) mg/dL Estimated GFR ML/MIN Glucose (74-106) mg/dL POC Glucometer (74 to 106) mg/dL Lactic Acid (0.4-2.0) Calcium (8.4-10.2) mg/dL Magnesium (1.6-2.3) mg/dL Total Bilirubin (0.2-1.3) mg/dL AST (14-36) U/L ALT (0-35) U/L Alkaline Phosphatase (38-126) U/L Troponin I (0.000-0.033) ng/mL NT-Pro-B Natriuret Pep (<300) pg/mL Serum Total Protein (6.3-8.2) g/dL Albumin (3.5-5.0) g/dL Influenza Type A Ag (NEGATIVE) Influenza Type B Ag (NEGATIVE) RSV (PCR) (NEGATIVE) SARS-CoV-2 (PCR) (NEGATIVE) Radiology Exams: Radiology Procedures Category Date Time Status CHEST 1 VIEW (PORTABLE) Stat Exams 06/14/24 05:16 Completed Assessment/Plan (1) Acute respiratory failure with hypoxia Current Visit: Yes Status: Acute Assessment & Plan: -Secondary to fluA/acute bronchitis -CXR with no acute findings -Completed Tamiflu course -Resp viral panel negative currently for fluA/covid/RSV -Levaquin given in ED - continue with Levaquin -prednisone 20mg bid -+IS -RT eval and follow -Nebs/INH -Supplemental oxygen with goal spo2 > 91% - RA baseline - currently on 2L -initiate droplet precautions -Supportive care with anti-pyretics/anti-emetics 06/15: -continue abx/ steroid -WBC reviewed and improving 10.2<11.1 Code(s): J96.01 - ACUTE RESPIRATORY FAILURE WITH HYPOXIA (2) Influenza A Current Visit: Yes Status: Acute Assessment & Plan: -see ARF Code(s): J10.1 - FLU DUE TO OTH IDENT INFLUENZA VIRUS W OTH RESP MANIFEST (3) Acute bronchitis Current Visit: Yes Status: Acute Assessment & Plan: -see ARF for plan Code(s): J20.9 - ACUTE BRONCHITIS, UNSPECIFIED (4) Hypokalemia Current Visit: Yes Status: Acute Assessment & Plan: -tele -Potassium reviewed at 3.2 -Potassium protocol with labs -monitor renal/lytes daily 06/15: -Potassium level reviewed and WNL at 4.3 - resolved Code(s): E87.6 - HYPOKALEMIA (5) Hypomagnesemia Current Visit: Yes Status: Acute Assessment & Plan: -Mg level at 1.2 - Magnesium 2g ordered in ED - will recheck in the a.m 06/15: -Mg level pending Code(s): E83.42 - HYPOMAGNESEMIA (6) Hypertension Current Visit: No Status: Acute Assessment & Plan: -Continue home meds 06/15: -BP elevated - will increase lisinopril to 20mg Code(s): I10 - ESSENTIAL (PRIMARY) HYPERTENSION (7) Type 2 diabetes mellitus Current Visit: Yes Status: Acute Assessment & Plan: -SSI - mod dose - adjust as needed with steroid use -ADA diet -Accuchecks -A1c pending 06/15: -SSI increased to HD for hyperglycemia (8) Hypothyroid Current Visit: Yes Status: Acute Assessment & Plan: -continue home levothyroxine VTE: Lovenox PPI: protonix Dispo: 1-2 days Code: full Code(s): J96.01 - ACUTE RESPIRATORY FAILURE WITH HYPOXIA (2) Influenza A Current Visit: Yes Status: Acute Code(s): J10.1 - FLU DUE TO OTH IDENT INFLUENZA VIRUS W OTH RESP MANIFEST (3) Acute bronchitis Current Visit: Yes Status: Acute Code(s): J20.9 - ACUTE BRONCHITIS, UNSPECIFIED (4) Hypokalemia Current Visit: Yes Status: Acute Code(s): E87.6 - HYPOKALEMIA (5) Hypomagnesemia Current Visit: Yes Status: Acute Code(s): E83.42 - HYPOMAGNESEMIA (6) Hypertension Current Visit: No Status: Acute Code(s): I10 - ESSENTIAL (PRIMARY) HYPERTENSION (7) Type 2 diabetes mellitus Current Visit: Yes Status: Acute (8) Hypothyroid Current Visit: Yes Status: Acute Code(s): E03.9 - HYPOTHYROIDISM, UNSPECIFIED
[2024-06-15 08:02] LABS: Absolute Neutrophil Ct (ANC) 5.73 x10^3/uL (1.56-6.13); BASOPHIL % 0.1 % (0.1-1.2); Basophil (Absolute #) 0.01 x10^3/uL (0.01-0.08); Eosinophil % 0.3 % (0.7-5.8); Eosinophil (Absolute #) 0.02 x10^3/uL (0.04-0.36); Hematocrit 31.2 % (34.1-44.9); Hemoglobin 10.2 g/dL (11.2-15.7); IMMATURE GRAN # 0.04 x10^3u/L (0.001-0.031); IMMATURE GRAN % 0.6 % (0.001-0.429); Lymphocytes % 8.7 % (19.3-51.7); Mean Cell Volume 84.3 fL (79.4-94.8); Mean Corpuscular Hemoglobin 27.6 pg (25.6-32.2); Mean Corpuscular Hgb Concent. 32.7 g/dL (32.2-35.5); Monocyte (Absolute #) 0.46 x10^3/uL (0.24-0.86); Monocytes % 6.7 % (4.7-12.5); Neutrophil % 83.6 % (34.0-71.1); Platelet Count 303 x10^3/uL (182-369); Red Cell Distribution Width 12.2 % (11.7-14.4); White Blood Count 6.9 x10^3/uL (3.98-10.04)
[2024-06-15 08:21] LABS: ANION GAP 19.3 MEQ/L (5-15); BILIRUBIN,TOTAL 0.5 mg/dL (0.2-1.3); Calcium 9.2 mg/dL (8.4-10.2); Creatinine 1 0.7 mg/dL (0.52-1.04); EST GLOMERULAR FILTRATION RATE 96.5 ML/MIN; Potassium 4.3 mmol/L (3.5-5.1); Total Protein 7.2 g/dL (6.3-8.2)
[2024-06-15] MEDS ORDERED: HUMALOG ONE (08:23)
[2024-06-15] MEDS: HUMALOG SQ PRN (08:24)
[2024-06-15] MEDS ORDERED: Protonix 40MG Tablet PO SCH (10:00)
[2024-06-15] MEDS: DESYREL 50 MG PO PRN (23:10)
[2024-06-15] MEDS: Artificial Tears 15 ML OP PRN (23:10)
[2024-06-16 06:29] LABS: Absolute Neutrophil Ct (ANC) 5.94 x10^3/uL (1.56-6.13); Basophil (Absolute #) 0 x10^3/uL (0.01-0.08); Eosinophil % 0.7 % (0.7-5.8); Eosinophil (Absolute #) 0.05 x10^3/uL (0.04-0.36); Hematocrit 32.9 % (34.1-44.9); Hemoglobin 10.7 g/dL (11.2-15.7); IMMATURE GRAN # 0.04 x10^3u/L (0.001-0.031); IMMATURE GRAN % 0.6 % (0.001-0.429); Lymphocyte (Absolute #) 0.75 x10^3/uL (1.18-3.74); Lymphocytes % 10.6 % (19.3-51.7); Mean Cell Volume 85.2 fL (79.4-94.8); Mean Corpuscular Hemoglobin 27.7 pg (25.6-32.2); Mean Corpuscular Hgb Concent. 32.5 g/dL (32.2-35.5); Mean Platelet Volume 10.5 fL (9.4-12.3); Monocyte (Absolute #) 0.31 x10^3/uL (0.24-0.86); Monocytes % 4.4 % (4.7-12.5); Neutrophil % 83.7 % (34.0-71.1); Platelet Count 288 x10^3/uL (182-369); Red Blood Count 3.86 x10^6/uL (3.93-5.22); Red Cell Distribution Width 12.3 % (11.7-14.4); White Blood Count 7.1 x10^3/uL (3.98-10.04)
[2024-06-16 06:53] LABS: ALBUMIN 3.9 g/dL (3.5-5.0); ANION GAP 15.2 MEQ/L (5-15); BILIRUBIN,TOTAL 0.4 mg/dL (0.2-1.3); Calcium 9.2 mg/dL (8.4-10.2); Creatinine 1 0.74 mg/dL (0.52-1.04); EST GLOMERULAR FILTRATION RATE 90.3 ML/MIN; Potassium 5.2 mmol/L (3.5-5.1)
[2024-06-16] MEDS: HUMALOG SQ SCH (08:11)
[2024-06-16] MEDS: Zestril 10 MG PO SCH (09:57)
--- NOTE | 2024-06-16 11:41 | PCM.DS ---
Discharge Summary Date of Admission: 06/14/24 09:39 Date of Discharge: 06/16/24 Admitting Physician: BROCK FIELDS MD Consults: Consults on Case 06/15/24 13:39 Case Management SDOH DC Needs Assessment ROUTINE Primary Care Provider: DEVIN GONG Allergies Allergies sumatriptan [From Imitrex] Allergy (Mild, Verified 06/14/24 07:32) sumatriptan succinate [From Imitrex] Allergy (Mild, Verified 06/14/24 07:32) acetaminophen [From Vicodin] Allergy (Verified 06/14/24 07:32) amitriptyline [Amitriptyline] Allergy (Verified 06/14/24 07:32) aripiprazole [From Abilify] Allergy (Verified 06/14/24 07:32) duloxetine HCl [From Cymbalta] Allergy (Verified 06/14/24 07:32) erythromycin base [Erythromycin Base] Allergy (Verified 06/14/24 07:32) escitalopram oxalate [From Lexapro] Allergy (Verified 06/14/24 07:32) hydrocodone bitartrate [From Vicodin] Allergy (Verified 06/14/24 07:32) ketorolac tromethamine [From Toradol] Allergy (Verified 06/14/24 07:32) quetiapine fumarate [From Seroquel] Adverse Reaction (Verified 06/14/24 07:32) Hospital Summary - Hospital Course Hospital Course: is a 63 year old female with a pmhx of HTN, DMII, GERD, colon cancer (s/p colon resection), and hypothyroid who presented to ED 06/14/24 with complaints of dyspnea, cough, and fever. Patient reports that she tested positive for FluA 06/01/24 and treated with Tamiflu. Symptoms have persisted since diagnosis and her dyspnea has progressively gotten worse. She also reports daily fevers with TMax of 103 just this morning. She also endorses diarrhea since diagnosis and thrush. Denies cp, abdominal pain, PEÑA, dizziness, or N/V. Upon presentation patient tachycardic, hypoxic, and hypertensive. Spo2 reported at 89-91%. She was placed on 2L oxygen with noted improvement. EKG NS with no acute ischemia. CXR with no acute findings. Lab findings remarkable for leukocytosis, hypokalemia, hypomagnesemia, and hyperglycemia. Respiratory viral panel negative. Patient received Levaquin, magnesium, and potassium in ED. Admit for acute respiratory failure with hypoxia secondary to FluA. IP treatment with continuation of steroids, levaquin, electrolyte replenishment, and supportive ca re. Dyspnea and cough improved. Patient now on RA and requesting discharge. Will dismiss on Levaquin. Will refill her inhalers. She has requested a glucometer - she no longer has one. Advised close monitoring of blood glucose levels and compliance with her home diabetes medications. She is to keep a blood glucose log and notify PCP if blood sugars consistently elevated. She states she does not need a refill of her diabetic meds- she has it at home. Patient advised follow up with PCP. She is agreeable to plan and stable for discharge. BP elevated during hospitalization - lisinopril increased to 20mg daily. Patient to keep BP log to take to follow up PCP appt for any adjustments needed. Discharge Note New Diagnosis: acute respiratory failure with hypoxia secondary to FluA New Medications: Levaquin - refill inhalers - glucometer with lancets/strips - increase lisinopril to 20mg daily Follow Up: PCP I spent 35 minutes [id number] with the patient on the day of discharge performing discharge exam, discussing hospital stay and discharge instructions with patient and caregivers, preparation of discharge records, prescriptions & referral forms and addressing any questions/concerns the patient had as documented above. - Vitals & Intake/Output Vital Signs: Vital Signs Temperature 97.9 F 06/16/24 08:00 Pulse Rate 73 06/16/24 08:00 Respiratory Rate 20 06/16/24 08:00 Blood Pressure 133/84 06/16/24 08:00 O2 Sat by Pulse Oximetry 95 06/16/24 08:00 Intake & Output: Intake & Output 06/13/24 06/14/24 06/15/24 06/16/24 11:59 11:59 11:59 11:59 Intake Total 1079 1680 Output Total 1999 2529 Balance -600 -805 Weight 59.1 kg 59.5 kg 59.5 kg - Lab Result Diagrams: 06/16/24 06:25 06/16/24 06:25 Lab Results-Last 24 Hrs: Lab Results-Last 24 Hours 06/15/24 06/15/24 06/15/24 Range/Units 07:50 11:40 16:46 WBC (3.98-10.04) x10^3/uL RBC (3.93-5.22) x10^6/uL Hgb (11.2-15.7) g/dL Hct (34.1-44.9) % MCV (79.4-94.8) fL MCH (25.6-32.2) pg MCHC (32.2-35.5) g/dL RDW (11.7-14.4) % Plt Count (182-369) x10^3/uL MPV (9.4-12.3) fL Gran % (34.0-71.1) % Immature Gran % (Auto) (0.001-0.429) % Nucleat RBC Rel Count (0.00-0.2) % Eos # (Auto) (0.04-0.36) x10^3/uL Immature Gran # (Auto) (0.001-0.031) x10^3u/L Absolute Lymphs (auto) (1.18-3.74) x10^3/uL Absolute Monos (auto) (0.24-0.86) x10^3/uL Absolute Nucleated RBC (0.00-0.012) x10^3u/L Lymphocytes % (19.3-51.7) % Monocytes % (4.7-12.5) % Eosinophils % (0.7-5.8) % Basophils % (0.1-1.2) % Absolute Granulocytes (1.56-6.13) x10^3/uL Basophils # (0.01-0.08) x10^3/uL Sodium (135-145) mmol/L Potassium (3.5-5.1) mmol/L Chloride (98-107) mmol/L Carbon Dioxide (22-30) mmol/L Anion Gap (5-15) MEQ/L BUN (7-17) mg/dL Creatinine (0.52-1.04) mg/dL Estimated GFR ML/MIN Glucose (74-106) mg/dL POC Glucometer 213 H 320 H (74 to 106) mg/dL Hemoglobin A1c (4.5-6.0) % Calcium (8.4-10.2) mg/dL Magnesium 1.8 (1.6-2.3) mg/dL Total Bilirubin (0.2-1.3) mg/dL AST (14-36) U/L ALT (0-35) U/L Alkaline Phosphatase (38-126) U/L Serum Total Protein (6.3-8.2) g/dL Albumin (3.5-5.0) g/dL 06/15/24 06/15/24 06/16/24 Range/Units 18:28 Unknown 00:41 WBC (3.98-10.04) x10^3/uL RBC (3.93-5.22) x10^6/uL Hgb (11.2-15.7) g/dL Hct (34.1-44.9) % MCV (79.4-94.8) fL MCH (25.6-32.2) pg MCHC (32.2-35.5) g/dL RDW (11.7-14.4) % Plt Count (182-369) x10^3/uL MPV (9.4-12.3) fL Gran % (34.0-71.1) % Immature Gran % (Auto) (0.001-0.429) % Nucleat RBC Rel Count (0.00-0.2) % Eos # (Auto) (0.04-0.36) x10^3/uL Immature Gran # (Auto) (0.001-0.031) x10^3u/L Absolute Lymphs (auto) (1.18-3.74) x10^3/uL Absolute Monos (auto) (0.24-0.86) x10^3/uL Absolute Nucleated RBC (0.00-0.012) x10^3u/L Lymphocytes % (19.3-51.7) % Monocytes % (4.7-12.5) % Eosinophils % (0.7-5.8) % Basophils % (0.1-1.2) % Absolute Granulocytes (1.56-6.13) x10^3/uL Basophils # (0.01-0.08) x10^3/uL Sodium (135-145) mmol/L Potassium (3.5-5.1) mmol/L Chloride (98-107) mmol/L Carbon Dioxide (22-30) mmol/L Anion Gap (5-15) MEQ/L BUN (7-17) mg/dL Creatinine (0.52-1.04) mg/dL Estimated GFR ML/MIN Glucose (74-106) mg/dL POC Glucometer 255 H 214 H (74 to 106) mg/dL Hemoglobin A1c 7.70 H (4.5-6.0) % Calcium (8.4-10.2) mg/dL Magnesium (1.6-2.3) mg/dL Total Bilirubin (0.2-1.3) mg/dL AST (14-36) U/L ALT (0-35) U/L Alkaline Phosphatase (38-126) U/L Serum Total Protein (6.3-8.2) g/dL Albumin (3.5-5.0) g/dL 06/16/24 06/16/24 06/16/24 Range/Units 06:25 06:25 07:24 WBC 7.1 (3.98-10.04) x10^3/uL RBC 3.86 L (3.93-5.22) x10^6/uL Hgb 10.7 L (11.2-15.7) g/dL Hct 32.9 L (34.1-44.9) % MCV 85.2 (79.4-94.8) fL MCH 27.7 (25.6-32.2) pg MCHC 32.5 (32.2-35.5) g/dL RDW 12.3 (11.7-14.4) % Plt Count 288 (182-369) x10^3/uL MPV 10.5 (9.4-12.3) fL Gran % 83.7 H (34.0-71.1) % Immature Gran % (Auto) 0.6 H (0.001-0.429) % Nucleat RBC Rel Count 0.0 (0.00-0.2) % Eos # (Auto) 0.05 (0.04-0.36) x10^3/uL Immature Gran # (Auto) 0.04 H (0.001-0.031) x10^3u/L Absolute Lymphs (auto) 0.75 L (1.18-3.74) x10^3/uL Absolute Monos (auto) 0.31 (0.24-0.86) x10^3/uL Absolute Nucleated RBC 0.00 (0.00-0.012) x10^3u/L Lymphocytes % 10.6 L (19.3-51.7) % Monocytes % 4.4 L (4.7-12.5) % Eosinophils % 0.7 (0.7-5.8) % Basophils % 0.0 L (0.1-1.2) % Absolute Granulocytes 5.94 (1.56-6.13) x10^3/uL Basophils # 0 L (0.01-0.08) x10^3/uL Sodium 135 (135-145) mmol/L Potassium 5.2 H D (3.5-5.1) mmol/L Chloride 100 (98-107) mmol/L Carbon Dioxide 26 (22-30) mmol/L Anion Gap 15.2 H (5-15) MEQ/L BUN 18 H (7-17) mg/dL Creatinine 0.74 (0.52-1.04) mg/dL Estimated GFR 90.3 ML/MIN Glucose 322 H (74-106) mg/dL POC Glucometer 322 H (74 to 106) mg/dL Hemoglobin A1c (4.5-6.0) % Calcium 9.2 (8.4-10.2) mg/dL Magnesium (1.6-2.3) mg/dL Total Bilirubin 0.40 (0.2-1.3) mg/dL AST 26 (14-36) U/L ALT 17 (0-35) U/L Alkaline Phosphatase 92 (38-126) U/L Serum Total Protein 7.0 (6.3-8.2) g/dL Albumin 3.9 (3.5-5.0) g/dL 06/16/24 Range/Units 10:58 WBC (3.98-10.04) x10^3/uL RBC (3.93-5.22) x10^6/uL Hgb (11.2-15.7) g/dL Hct (34.1-44.9) % MCV (79.4-94.8) fL MCH (25.6-32.2) pg MCHC (32.2-35.5) g/dL RDW (11.7-14.4) % Plt Count (182-369) x10^3/uL MPV (9.4-12.3) fL Gran % (34.0-71.1) % Immature Gran % (Auto) (0.001-0.429) % Nucleat RBC Rel Count (0.00-0.2) % Eos # (Auto) (0.04-0.36) x10^3/uL Immature Gran # (Auto) (0.001-0.031) x10^3u/L Absolute Lymphs (auto) (1.18-3.74) x10^3/uL Absolute Monos (auto) (0.24-0.86) x10^3/uL Absolute Nucleated RBC (0.00-0.012) x10^3u/L Lymphocytes % (19.3-51.7) % Monocytes % (4.7-12.5) % Eosinophils % (0.7-5.8) % Basophils % (0.1-1.2) % Absolute Granulocytes (1.56-6.13) x10^3/uL Basophils # (0.01-0.08) x10^3/uL Sodium (135-145) mmol/L Potassium (3.5-5.1) mmol/L Chloride (98-107) mmol/L Carbon Dioxide (22-30) mmol/L Anion Gap (5-15) MEQ/L BUN (7-17) mg/dL Creatinine (0.52-1.04) mg/dL Estimated GFR ML/MIN Glucose (74-106) mg/dL POC Glucometer 195 H (74 to 106) mg/dL Hemoglobin A1c (4.5-6.0) % Calcium (8.4-10.2) mg/dL Magnesium (1.6-2.3) mg/dL Total Bilirubin (0.2-1.3) mg/dL AST (14-36) U/L ALT (0-35) U/L Alkaline Phosphatase (38-126) U/L Serum Total Protein (6.3-8.2) g/dL Albumin (3.5-5.0) g/dL Micro Results-Entire Visit: Microbiology 06/14/24 06:45 Blood Culture - Preliminary Blood 06/14/24 06:30 Blood Culture - Preliminary Blood Accuchecks Date 06/16/24 Date 06/16/24 Date 06/15/24 Time 00:10 Time 17:13 - Procedures and Test Procedures and Tests throughout Hospitalization: Therapy Orders & Screens 06/14/24 05:34 Respiratory Therapy Assessment DAILY Comment: 06/14/24 09:49 Oxygen NASAL CANNULA 2 lpm Comment: Diagnosis: Influenza, pneumonia, shortness of breath, hypomagnesemia 06/14/24 10:48 Respiratory Therapy Consult ONCE Comment: Reason For Exam: Diagnosis: Influenza, pneumonia, shortness of breath, hypomagnesemia Discharge Exam General Appearance: no apparent distress Neurologic Exam: alert, oriented x 3, cooperative Eye Exam: PERRL Ears, Nose, Throat Exam: normal ENT inspection Neck Exam: normal inspection Respiratory Exam: normal breath sounds, lungs clear, diminished breath sounds Cardiovascular Exam: regular rate/rhythm, normal heart sounds Gastrointestinal/Abdomen Exam: soft, normal bowel sounds Pelvic Exam: deferred Rectal Exam: deferred Back Exam: normal inspection Extremity Exam: normal inspection Skin Exam: normal color Final Diagnosis/Problem List - Final Discharge Diagnosis/Problem (1) Acute respiratory failure with hypoxia Current Visit: Yes Status: Resolved Code(s): J96.01 - ACUTE RESPIRATORY FAILURE WITH HYPOXIA (2) Influenza A Current Visit: Yes Status: Acute Code(s): J10.1 - FLU DUE TO OTH IDENT INFLUENZA VIRUS W OTH RESP MANIFEST (3) Acute bronchitis Current Visit: Yes Status: Acute Code(s): J20.9 - ACUTE BRONCHITIS, UNSPECIFIED (4) Hypokalemia Current Visit: Yes Status: Resolved Code(s): E87.6 - HYPOKALEMIA (5) Hypomagnesemia Current Visit: Yes Status: Resolved Code(s): E83.42 - HYPOMAGNESEMIA (6) Hypertension Current Visit: No Status: Chronic Code(s): I10 - ESSENTIAL (PRIMARY) HYPERTENSION (7) Type 2 diabetes mellitus Current Visit: Yes Status: Chronic (8) Hypothyroid Current Visit: Yes Status: Chronic Code(s): E03.9 - HYPOTHYROIDISM, UNSPECIFIED - Discharge Discharge Date: 06/16/24 Disposition: Home, Self-Care Condition: Stable Prescriptions: New levoFLOXacin [Levofloxacin] 750 mg PO DAILY 5 Days #5 tablet Nystatin/TCN/Hc/Diphenhydramin [Selene's Mouthwash] 10 ml PO QID Lisinopril 20 mg [Zestril 20 MG] 20 mg PO DAILY #30 tablet Continue PANTOPRAZOLE 40 mg Tablet [Protonix 40MG Tablet] 40 mg PO BID Montelukast Sodium 10 mg [Singulair 10 MG] 1 tab PO DAILY Levothyroxine Sodium 112 Mcg [Synthroid 112 Mcg] 112 mcg PO DAILY Glipizide 10 mg [Glucotrol 10 MG] 10 mg PO BID Ondansetron ODT 4 MG [Zofran Odt 4 mg] 4 mg PO Q6H PRN PRN #10 tablet PRN Reason: Vomiting Albuterol 8 gm Mdi Hfa [Ventolin Hfa MDI] 2 puff IH Q6HPRN PRN 30 Days #1 inh PRN Reason: Shortness Of Breath Discontinued Lisinopril 10 mg [Zestril 10 MG] 10 mg PO DAILY Albuterol 8 gm Mdi Hfa [Ventolin Hfa MDI] 90 mcg IH QID PRN PRN Reason: Shortness Of Breath/Wheezing Additional Instructions: TEST YOUR BLOOD SUGAR DAILY IN THE AM, KEEP A LOG TO TAKE TO YOUR FOLLOW UP APT. - Notify PCP if blood glucose levels consistently elevated -Keep blood pressure log daily and take to follow up PCP appt. ORDER FOR GLUCOMETER, TEST STRIPS, AND LANCETS CALLED INTO [facility] Follow up with: LIZETH CARTER FNP [Primary Care Provider] -
[2024-06-16 12:08] VITALS: BP 142/67; TEMP 97.7
[2024-06-16 12:58] VITALS: PULSE 75; RESP 20; O2SAT 95
== END 2024-06-16 15:30 | disposition home or self-care (01) ==
LOC: ED 05:12 → MED SURG 09:39
PROVIDERS: ADMIT Internal Medicine; ATTEND Internal Medicine
DX: J96.01 Acute respiratory failure with hypoxia (principal); J10.1 Influenza due to other identified influenza virus with other respiratory manifestations; J20.9 Acute bronchitis, unspecified; E87.6 Hypokalemia; E83.42 Hypomagnesemia; I10 Essential (primary) hypertension; E03.9 Hypothyroidism, unspecified; R11.2 Nausea with vomiting, unspecified; R19.7 Diarrhea, unspecified; D72.829 Elevated white blood cell count, unspecified; E11.65 Type 2 diabetes mellitus with hyperglycemia; Z79.899 Other long term (current) drug therapy; Z85.038 Personal history of other malignant neoplasm of large intestine
CPT/HCPCS: 0241U; 36410; 36415; 71045; 80053; 82947; 83036; 83605; 83735; 83880; 84132; 84484; 85025; 87040; 93005; 93041; 94640; 94760; 94762; 99285; Q3014; 93268; G0378; J1650; J1817; J3475; A9270-GY

== ENCOUNTER 2025-02-06 11:42 | Emergency (ER) | payer MEDICARE, OTHER ==
[2025-02-06 11:51] VITALS: TEMP 97.6
--- NOTE | 2025-02-06 11:53 | ERPHSYRPT ---
- History of Present Illness Time Seen by Provider: 02/06/25 11:48 Historian: patient, family Exam Limitations: no limitations Physician History: This is a 64-year-old white female patient arrives by private vehicle accompanied by significant other and is a patient of medical provider [place] with a complaint of substernal central "gripping" chest pain without radiation that came on at 830 this morning. She felt fine yesterday. Patient has never been diagnosed with coronary artery disease. She has never had a cardiac catheterization performed. Patient continues to smoke tobacco. Patient has a history of hypertension and did take her lisinopril and hydralazine medication this morning. She arrives to the emergency department with a systolic blood pressure of 202 mmHg. The patient has a history of diabetes, hypothyroidism, hypertension, hyperlipidemia, gastroesophageal reflux disease, COPD, migraine headache. Timing/Duration: today Activities at Onset: none Quality: other ("Gripping pain") Location: substernal, central Chest Pain Radiation: no radiation Severity of Pain-Max: mild Severity of Pain-Current: mild Modifying Factors: Improves With: nothing Associated Symptoms: denies symptoms Prior Chest Pain/Cardiac Workup: no prior cardiac workup Nitro Today/Relief: no nitro taken today Aspirin Treatment Today: 81 mg x 4, provided by ED Allergies/Adverse Reactions: sumatriptan [From Imitrex] Allergy (Mild, Verified 02/06/25 11:44) sumatriptan succinate [From Imitrex] Allergy (Mild, Verified 02/06/25 11:44) amitriptyline [Amitriptyline] Allergy (Verified 02/06/25 11:44) aripiprazole [From Abilify] Allergy (Verified 02/06/25 11:44) duloxetine HCl [From Cymbalta] Allergy (Verified 02/06/25 11:44) erythromycin base [Erythromycin Base] Allergy (Verified 02/06/25 11:44) escitalopram oxalate [From Lexapro] Allergy (Verified 02/06/25 11:44) ketorolac tromethamine [From Toradol] Allergy (Verified 02/06/25 11:44) tizanidine Allergy (Verified 02/06/25 11:44) quetiapine fumarate [From Seroquel] Adverse Reaction (Verified 02/06/25 11:44) Home Medications: Glipizide 10 mg [Glucotrol 10 MG] 10 mg PO BID 06/01/24 [History] Levothyroxine Sodium 112 Mcg [Synthroid 112 Mcg] 112 mcg PO DAILY 06/01/24 [History] Montelukast Sodium 10 mg [Singulair 10 MG] 1 tab PO DAILY 06/01/24 [History] Atorvastatin Calcium [Lipitor] 10 mg PO DAILY 02/06/25 [History] HydrALAzine HCL 25 MG TAB [Apresoline 25 MG TABLET] 10 mg PO DAILY 02/06/25 [History] Hydroxychloroquine Sulfate 200 mg PO BID 02/06/25 [History] Insulin Glargine [Lantus Insulin] 10 unit SQ DAILY 02/06/25 [History] Hx Tetanus, Diphtheria Vaccination/Date Given: Yes Hx Influenza Vaccination/Date Given: No Hx Pneumococcal Vaccination/Date Given: No Travel Risk - International Travel Have you traveled outside of the country in past 3 weeks: No - Emerging Infectious Disease Are you exhibiting symptoms associated with any current EIDs: No Symptoms: Fever, Headaches/Body Aches/ - Review of Systems Constitutional: No Symptoms Eyes: No Symptoms Ears, Nose, & Throat: No Symptoms Respiratory: No Symptoms Cardiac: Chest Pain Abdominal/Gastrointestinal: No Symptoms Genitourinary Symptoms: No Symptoms Musculoskeletal: No Symptoms Skin: No Symptoms Neurological: No Symptoms Psychological: No Symptoms Endocrine: No Symptoms Hematologic/Lymphatic: No Symptoms Immunological/Allergic: No Symptoms All Other Systems: Reviewed and Negative - Past Medical History Pertinent Past Medical History: Yes Neurological History: Migraines ENT History: No Pertinent History Cardiac History: Hypertension Respiratory History: Asthma Endocrine Medical History: Diabetes Type II, Hypothyroidism Musculoskeletal History: No Pertinent History GI Medical History: GERD History: Other Psycho-Social History: Anxiety, Depression Female Reproductive Disorders: No Pertinent History Other Medical History: hx colon cancer - Past Surgical History Past Surgical History: Yes Neuro Surgical History: No Pertinent History Cardiac: No Pertinent History Respiratory: No Pertinent History Gastrointestinal: Cholecystectomy Genitourinary: No Pertinent History Musculoskeletal: Orthopedic Surgery Female Surgical History: Section, Tubal Ligation Other Surgical History: colon resection 01/2016, port to left chest Significant Family History: hypertension - Social History Smoking Status: Never smoker Exposure to second hand smoke: Yes Drug Use: none - Social Determinants of Health Will the patient participate in the screening: Yes Do you worry about a steady place to live?: No In the past 12 months,have you had to go without utilities?: No Transportation Issues: No Has anyone in your support network made you feel unsafe?: No Have you or anyone in your house had to go w/o enough food: No - Nursing Vital Signs Nursing Vital Signs: Initial Vital Signs Blood Pressure 202/87 02/06/25 11:44 Pain Scale Pain Intensity 8 - Physical Exam General Appearance: no apparent distress, alert, anxiety Eye Exam: PERRL/EOMI, eyes nml inspection Ears, Nose, Throat Exam: moist mucous membranes Neck Exam: normal inspection, non-tender, supple, full range of motion Respiratory Exam: normal breath sounds, chest tenderness, lungs clear, airway intact, No respiratory distress Cardiovascular Exam: regular rate/rhythm, normal heart sounds, normal peripheral pulses Gastrointestinal/Abdomen Exam: soft, normal bowel sounds, No tenderness Pelvic Exam: not done Rectal Exam: not done Back Exam: normal inspection, normal range of motion, No CVA tenderness, No vertebral tenderness Extremity Exam: normal inspection, normal range of motion, pelvis stable Neurologic Exam: alert, oriented x 3, cooperative, masking machine feeder II-XII nml as tested, nml cerebellar function, nml station & gait, sensation nml Skin Exam: normal color, warm, dry Lymphatic Exam: No adenopathy SpO2 Interpretation: normal O2 Delivery: Room Air - Course Nursing assessment & vital signs reviewed: Yes EKG Interpreted by Me: RATE (52), Sinus Rhythm, NORMAL AXIS, NORMAL INTERVALS, NORMAL QRS, Other (QTc is 421. No acute ischemia on this twelve-lead EKG.) Ordered Tests: Active Orders 24 hr Category Date Time Status EKG-ER Only STAT Care 02/06/25 11:54 Active EKG-ER Only STAT Care 02/06/25 13:29 Active IV Insertion STAT Care 02/06/25 11:54 Active Pulse Oximetry (ED) STAT Care 02/06/25 11:54 Active CHEST 1 VIEW (PORTABLE) Stat Exams 02/06/25 12:36 Taken CBC W DIFF Stat Lab 02/06/25 12:04 Completed CMP Stat Lab 02/06/25 12:04 Completed D-DIMER QUANTITATIVE Stat Lab 02/06/25 12:04 Completed MAGNESIUM Stat Lab 02/06/25 12:04 Completed NT PRO BNPII Stat Lab 02/06/25 12:04 Completed PROTIME WITH INR Stat Lab 02/06/25 12:04 Completed TROPONIN Q4H Lab 02/06/25 12:04 Completed TROPONIN Q4H Lab 02/06/25 14:01 Completed TROPONIN Q4H Lab 02/06/25 20:00 Ordered Medication Summary Discontinued Medications Generic Name Dose Route Start Last Admin Trade Name Nashq PRN Reason Stop Dose Admin Aspirin 324 mg 02/06/25 11:54 02/06/25 12:18 Aspirin 81 Mg Tab.Chew PO 02/06/25 11:55 324 mg STAT ONE Administration Aspirin Confirm 02/06/25 12:17 Aspirin 81 Mg Tab.Chew Administered 02/06/25 12:18 Dose 324 mg .ROUTE .[employer] ONE Lab/Rad Data: Laboratory Result Diagrams 02/06/25 12:04 02/06/25 12:04 Laboratory Results 02/06/25 02/06/25 02/06/25 Range/Units 14:01 12:04 12:04 WBC (3.98-10.04) x10^3/uL RBC (3.93-5.22) x10^6/uL Hgb (11.2-15.7) g/dL Hct (34.1-44.9) % MCV (79.4-94.8) fL MCH (25.6-32.2) pg MCHC (32.2-35.5) g/dL RDW (11.7-14.4) % Plt Count (182-369) x10^3/uL MPV (9.4-12.3) fL Gran % (34.0-71.1) % Immature Gran % (Auto) (0.001-0.429) % Nucleat RBC Rel Count (0.00-0.2) % Eos # (Auto) (0.04-0.36) x10^3/uL Immature Gran # (Auto) (0.001-0.031) x10^3u/L Absolute Lymphs (auto) (1.18-3.74) x10^3/uL Absolute Monos (auto) (0.24-0.86) x10^3/uL Absolute Nucleated RBC (0.00-0.012) x10^3u/L Lymphocytes % (19.3-51.7) % Monocytes % (4.7-12.5) % Eosinophils % (0.7-5.8) % Basophils % (0.1-1.2) % Absolute Granulocytes (1.56-6.13) x10^3/uL Basophils # (0.01-0.08) x10^3/uL PT 10.2 (9.4-12.5) SECONDS INR 0.91 (0.8-3.0) D-Dimer 0.22 (0.0-0.50) mg/L Sodium (135-145) mmol/L Potassium (3.5-5.1) mmol/L Chloride (98-107) mmol/L Carbon Dioxide (22-30) mmol/L Anion Gap (5-15) MEQ/L BUN (7-17) mg/dL Creatinine (0.52-1.04) mg/dL Estimated GFR ML/MIN Glucose (74-106) mg/dL Calcium (8.4-10.2) mg/dL Magnesium (1.6-2.3) mg/dL Total Bilirubin (0.2-1.3) mg/dL AST (14-36) U/L ALT (0-35) U/L Alkaline Phosphatase (38-126) U/L Troponin I < 0.012 < 0.012 (0.000-0.033) ng/mL NT-Pro-B Natriuret Pep (<300) pg/mL Serum Total Protein (6.3-8.2) g/dL Albumin (3.5-5.0) g/dL 02/06/25 02/06/25 Range/Units 12:04 12:04 WBC 8.7 (3.98-10.04) x10^3/uL RBC 4.19 (3.93-5.22) x10^6/uL Hgb 12.1 (11.2-15.7) g/dL Hct 38.3 (34.1-44.9) % MCV 91.4 (79.4-94.8) fL MCH 28.9 (25.6-32.2) pg MCHC 31.6 L (32.2-35.5) g/dL RDW 13.1 (11.7-14.4) % Plt Count 199 (182-369) x10^3/uL MPV 10.4 (9.4-12.3) fL Gran % 68.3 (34.0-71.1) % Immature Gran % (Auto) 0.3 (0.001-0.429) % Nucleat RBC Rel Count 0.0 (0.00-0.2) % Eos # (Auto) 0.13 (0.04-0.36) x10^3/uL Immature Gran # (Auto) 0.03 (0.001-0.031) x10^3u/L Absolute Lymphs (auto) 2.07 (1.18-3.74) x10^3/uL Absolute Monos (auto) 0.50 (0.24-0.86) x10^3/uL Absolute Nucleated RBC 0.00 (0.00-0.012) x10^3u/L Lymphocytes % 23.9 (19.3-51.7) % Monocytes % 5.8 (4.7-12.5) % Eosinophils % 1.5 (0.7-5.8) % Basophils % 0.2 (0.1-1.2) % Absolute Granulocytes 5.91 (1.56-6.13) x10^3/uL Basophils # 0.02 (0.01-0.08) x10^3/uL PT (9.4-12.5) SECONDS INR (0.8-3.0) D-Dimer (0.0-0.50) mg/L Sodium 139 (135-145) mmol/L Potassium 4.1 (3.5-5.1) mmol/L Chloride 108 H (98-107) mmol/L Carbon Dioxide 23 (22-30) mmol/L Anion Gap 12.6 (5-15) MEQ/L BUN 25 H (7-17) mg/dL Creatinine 0.77 (0.52-1.04) mg/dL Estimated GFR 85.6 ML/MIN Glucose 166 H (74-106) mg/dL Calcium 9.3 (8.4-10.2) mg/dL Magnesium 1.8 (1.6-2.3) mg/dL Total Bilirubin 0.20 (0.2-1.3) mg/dL AST 27 (14-36) U/L ALT 20 (0-35) U/L Alkaline Phosphatase 66 (38-126) U/L Troponin I (0.000-0.033) ng/mL NT-Pro-B Natriuret Pep 194 (<300) pg/mL Serum Total Protein 7.2 (6.3-8.2) g/dL Albumin 4.3 (3.5-5.0) g/dL - Progress Progress: improved, re-examined Air Movement: good Progress Note: 02/06/25 11:59 My medical decision making and the assignment of moderate complexity of this patient's medical issue today is based on review of the patient's past medical history, reviewed patient's medication list, reviewed patient drug allergy list, history of present illness and physical findings on examination. The workup of this patient includes placement of an intravenous line, twelve-lead EKG, provide the patient with 4 baby aspirin, CBC, CMP, magnesium level, D-dimer level, troponin level, BNP. If the D-dimer level is not elevated we will proceed with a chest x-ray. If the D-dimer level is elevated we will proceed with a CT scan of the chest with contrast if the patient agrees. Differential diagnosis includes but is not limited to pulmonary infiltrate, muscle skeletal pain, hypertension causing chest pain, myocardial infarction, electrolyte abnormalities, arrhythmia, pulmonary embolus 02/06/25 14:10 I interpreted the second twelve-lead EKG performed on 02/06/2025 at 1406. The heart rate of 57 bpm. The rhythm is normal sinus rhythm. There is normal axis deviation, normal QRS, normal intervals. There is borderline T wave abnormalities. QTc is 479. No changes from the prior twelve-lead EKG. No acute ischemia on this second twelve-lead EKG. I reexamined the patient and she is resting comfortably without chest pain. Her systolic blood pressure is now 160 mmHg without any intervention. 02/06/25 14:38 I interpreted the second troponin level which is normal. I also reexamined the patient she no longer has chest pain. We will discharge her to home and she is to follow-up with her primary care provider on 02/08/2025 to make arrangements for follow-up appointment to be seen in the next 3 to 5 days and for discussion to arrange an outpatient truck unloader appointment. Blood Culture(s) Obtained: Yes Antibiotics given: No Counseled pt/family regarding: lab results, diagnosis, rad results Medical Desision Making - Independent Historian Additional History obtained from: Spouse - Diagnostic Testing Diagnostic test were ordered, analyzed, and reviewed by me: Yes Radiological Interpretation: Interpreted by me - Risk of complications Low Risk: Low risk of morbidity from additional dx testing or treatment - Departure Departure Disposition: Home Clinical Impression: Nonspecific chest pain, Hypertension Condition: Stable Critical Care Time: No Referrals: LIZETH CARTER FNP [Primary Care Provider, UNKNOWN] - Follow up/PCP as directed Additional Instructions: Continue your medications as prescribed. Call your primary care provider on 02/08/2025, to make arrangements for follow-up appointment to be seen in the next 3 to 5 days to discuss your high blood pressure as well as further investigation of this nonspecific chest pain and possible referral to a truck unloader if indicated.
[2025-02-06 12:06] LABS: BASOPHIL % 0.2 % (0.1-1.2); Basophil (Absolute #) 0.02 x10^3/uL (0.01-0.08); Eosinophil (Absolute #) 0.13 x10^3/uL (0.04-0.36); Hematocrit 38.3 % (34.1-44.9); Hemoglobin 12.1 g/dL (11.2-15.7); IMMATURE GRAN # 0.03 x10^3u/L (0.001-0.031); IMMATURE GRAN % 0.3 % (0.001-0.429); Lymphocyte (Absolute #) 2.07 x10^3/uL (1.18-3.74); Mean Corpuscular Hemoglobin 28.9 pg (25.6-32.2); Mean Corpuscular Hgb Concent. 31.6 g/dL (32.2-35.5); Monocyte (Absolute #) 0.50 x10^3/uL (0.24-0.86); NUCLEATED RBC # 0.00 x10^3u/L (0.00-0.012); NUCLEATED RBC % 0.0 % (0.00-0.2); Platelet Count 199 x10^3/uL (182-369); Red Blood Count 4.19 x10^6/uL (3.93-5.22); White Blood Count 8.7 x10^3/uL (3.98-10.04)
[2025-02-06] MEDS ORDERED: BABY ASPIRIN 81 MG CHEW ONE (12:17)
[2025-02-06] MEDS: BABY ASPIRIN 81 MG CHEW PO ONE (12:18)
[2025-02-06 12:21] LABS: INR 0.91 (0.8-3.0); PROTIME 10.2 SECONDS (9.4-12.5)
[2025-02-06 12:29] LABS: Calcium 9.3 mg/dL (8.4-10.2); Carbon Dioxide 23.0 mmol/L (22-30); Creatinine 1 0.77 mg/dL (0.52-1.04); EST GLOMERULAR FILTRATION RATE 85.6 ML/MIN; Glucose 166.0 mg/dL (74-106); NT PRO BNPII 194.0 pg/mL (<300); Potassium 4.1 mmol/L (3.5-5.1); SGOT/AST 27.0 U/L (14-36); SGPT/ALT 20.0 U/L (0-35); Total Protein 7.2 g/dL (6.3-8.2)
[2025-02-06 14:12] VITALS: O2SAT 98
[2025-02-06 14:42] VITALS: BP 154/78; PULSE 58; RESP 15
--- NOTE | 2025-02-06 20:36 | XRAY ---
Indication: Short of breath. Comparison: June 14, 2024 Portable chest unchanged again hyperinflated and clear. Heart not enlarged again with left Port-A-Cath tip in right subclavian vein. Bony thorax intact again with osteopenia and mild degenerative changes. No new/acute findings.
== END 2025-02-06 14:45 | disposition home or self-care (01) ==
LOC: ED 11:42
DX: R07.9 Chest pain, unspecified (principal); I10 Essential (primary) hypertension; E11.9 Type 2 diabetes mellitus without complications; Z79.84 Long term (current) use of oral hypoglycemic drugs; Z79.4 Long term (current) use of insulin; Z79.899 Other long term (current) drug therapy